=== PATIENT | male | born 1940 | race Hispanic/Latino ===

== ENCOUNTER 2021-02-10 05:56 | Emergency (ER) | payer MEDICARE ==
--- NOTE | 2021-02-10 06:07 | Emergency Department Report ---
ED General Adult HPI - General Chief complaint: Tube Replacement Stated complaint: DISLODGE FEEDING TUBE PUI?: No Time Seen by Provider: 02/10/21 06:03 Source: patient, family, EMS (Verbal report received from emergency medical services. EMS documentation not available at time of chart dictation ), RN notes reviewed, old records reviewed Mode of arrival: Stretcher Limitations: Other (Patient is demented and a poor historian) - History of Present Illness Initial comments: The patient was evaluated in the emergency department for symptoms described in the history of present illness. He/she was evaluated in the context of the global COVID-19 pandemic, which necessitated consideration that the patient might be at risk for infection with the virus that causes COVID-19. Institutional protocols and algorithms that pertain to the evaluation of patients at risk for COVID-19 are in a state of rapid change based on informati on released by regulatory bodies including the CDC and federal and state organizations. These policies and algorithms were followed during the patient's care in the emergency department. Please note that these policies, procedures and recommendations changed on a rapid basis. History obtained from patient's , Ms. Debo Posada; [id number] The patient is a 80-year-old gentleman, with a history of dysphasia, stroke, feeding tube in place since December of this year, who was sent to the emergency room by his family and , with a request for feeding tube evaluation. As per his , the patient has been in his usual state of health, and she felt that he pulled at the tube this morning, and was concerned that the tube is dislodged and out of place. She denies all other complaints. She feels like the patient is at his baseline. The patient himself is demented and a poor historian does not offer additional history. He indicates that he is "cold", when covers are taken off of him to perform a physical examination. He denies physical pain at this time. His denies physical pain. She also denies nausea, vomiting, diarrhea, urinary frequency, and change in mental status. Primary CARE doctor: Jaspreet Denis -: This morning Improves with: none Worsens with: none Associated Symptoms: denies other symptoms - Related Data Home Medications Medication Instructions Recorded Confirmed Last Taken Metoprolol [Lopressor TAB] 50 mg PO BID 06/05/14 02/20/20 Unknown allopurinoL [Zyloprim] 300 mg PO DAILY 06/05/14 02/20/20 Unknown Apixaban [Eliquis] 1 tab PO BID 02/20/20 02/20/20 Unknown Flecainide [Tambocor] 50 mg PO Q12H 02/20/20 02/20/20 Unknown Memantine 10 mg PO BID 02/20/20 02/20/20 Unknown Rivastigmine [Exelon Patch 1 patch TRANSDERMA DAILY 02/20/20 02/20/20 Unknown 4.6mg/24hr] Tamsulosin [Flomax] 0.4 mg PO DAILY 02/20/20 02/20/20 Unknown amLODIPine 5 mg PO DAILY 02/20/20 02/20/20 Unknown Allergies Allergy/AdvReac Type Severity Reaction Status Date / Time hydromorphone HCl Allergy Vomiting Verified 06/05/14 21:35 [From Dilaudid] morphine Allergy Unknown Verified 06/05/14 21:35 ED Review of Systems ROS: Stated complaint: DISLODGE FEEDING TUBE Other details as noted in HPI Comment: All other systems reviewed and negative (As per discussion with patient's ) ED Past Medical Hx - Past Medical History Hx Hypertension: Yes Hx CVA: Yes (left peripheral vision 2010) Hx GERD: Yes Hx COPD: Yes Hx Dementia: Yes Additional medical history: Gout. polycythemia vera. AFIB. Reflex sympathetic dystrophy. Pacemaker - Surgical History Hx Pacemaker: Yes Additional Surgical History: Left knee surgery 2006. cataracts 2009, 2010. Herniorrhaphy. Elbow surgery - Social History Smoking Status: Never Smoker Substance Use Type: None - Medications Home Medications: Home Medications Medication Instructions Recorded Confirmed Last Taken Type Metoprolol [Lopressor TAB] 50 mg PO BID 06/05/14 02/20/20 Unknown History allopurinoL [Zyloprim] 300 mg PO DAILY 06/05/14 02/20/20 Unknown History Apixaban [Eliquis] 1 tab PO BID 02/20/20 02/20/20 Unknown History Flecainide [Tambocor] 50 mg PO Q12H 02/20/20 02/20/20 Unknown History Memantine 10 mg PO BID 02/20/20 02/20/20 Unknown History Rivastigmine [Exelon Patch 1 patch TRANSDERMA DAILY 02/20/20 02/20/20 Unknown History 4.6mg/24hr] Tamsulosin [Flomax] 0.4 mg PO DAILY 02/20/20 02/20/20 Unknown History amLODIPine 5 mg PO DAILY 02/20/20 02/20/20 Unknown History ED Physical Exam - General Limitations: Language Barrier, Physical Limitation, Other (Dementia and poor historian) General appearance: alert, in no apparent distress - Head Head exam: Present: atraumatic, normocephalic - Eye Eye exam: Present: normal appearance - ENT ENT exam: Present: normal exam, normal orophraynx, mucous membranes moist, normal external ear exam, other (Hearing aid noted in the right ear) - Neck Neck exam: Present: normal inspection, full ROM. Absent: tenderness, meningismus - Respiratory Respiratory exam: Present: normal lung sounds bilaterally. Absent: respiratory distress, wheezes, rales, rhonchi, stridor, chest wall tenderness, accessory muscle use, decreased breath sounds, prolonged expiratory - Cardiovascular Cardiovascular Exam: Present: regular rate, normal rhythm, normal heart sounds. Absent: bradycardia, tachycardia, irregular rhythm, systolic murmur, diastolic murmur, rubs, gallop - GI/Abdominal GI/Abdominal exam: Present: soft, other (There is a feeding tube in place, with no redness, pus or streaking). Absent: distended, tenderness, guarding, rebound, rigid, pulsatile mass - Rectal Rectal exam: Present: deferred - Extremities Exam Extremities exam: Present: normal inspection, other (2+ pulses noted in the bilateral upper and lower extremities. There is no palpable cord. negative Homans sign. Muscular compartments are soft. The pelvis is stable.). Absent: tenderness - Back Exam Back exam: Present: normal inspection. Absent: tenderness, CVA tenderness (R), CVA tenderness (L), paraspinal tenderness, vertebral tenderness - Neurological Exam Neurological exam: Present: other (The patient is demented. The patient explains that he is cold when he is examined. The patient is noted to be moving his right arm in his bilateral lower extremities. There is no obvious facial droop. Detailed neurologic examination limited secondary to underlying dementia) - Skin Skin exam: Present: warm, dry, intact, normal color. Absent: rash ED Course Vital Signs 02/10/21 02/10/21 06:07 06:24 Temperature 97.4 F L Pulse Rate 71 Respiratory 16 16 Rate Blood Pressure 148/83 O2 Sat by Pulse 99 Oximetry - Reevaluation(s) Reevaluation #1: 02/10/21 07:41 X-ray confirms appropriate placement of feeding tube, patient resting comfortably in no acute distress, patient's is updated. ED Medical Decision Making - Lab Data Vital Signs 02/10/21 02/10/21 06:07 06:24 Temperature 97.4 F L Pulse Rate 71 Respiratory 16 16 Rate Blood Pressure 148/83 O2 Sat by Pulse 99 Oximetry - Radiology Data Radiology results: pending, report reviewed, image reviewed interpreted by me: G-tube x-ray shows appropriate placement of feeding tube, with appropriate contrast and the GI lumen. [facility] [address] [place] [address] XRay Report Signed Patient: NASIR POSADA MR#: [id number] : 1940 Acct:[id number] Age/Sex: 80 / M ADM Date: 02/10/21 Loc: ED Attending Dr: Ordering Physician: RANCHO CARRASCO MD Date of Service: 02/10/21 Procedure(s): XR g-tube study Accession Number(s): [id number] cc: RANCHO CARRASCO MD Fluoro Time In Minutes: G-TUBE STUDY HISTORY: Assess tube placement. Question PEG tube dislodgment. COMPARISON: No relevant comparison. FINDINGS: Forest[employer] Chief film of the abdomen is presented demonstrating a PEG tube overlying the left upper quadrant. The bowel gas pattern is normal. A second image was obtained following injec tion of 30 cc of Gastrografin into the PEG tube. Contrast agent outlines the stomach, duodenum and proximal jejunum. There is no evidence for extravasation or obstruction. IMPRESSION: The peg tube terminates in the stomach. No abnormality is appreciated on G-tube study. Signer Name: Nishant Nagel Jr, MD Signed: 02/10/2021 7:33 AM Workstation Name: [id number] Transcribed By: TTR Dictated By: NISHANT NAGEL JR, MD Electronically Authenticated By: NISHANT NAGEL JR, MD Signed Date/Time: 02/10/21732 DD/ 0 - Medical Decision Making Differential diagnosis, including but not limited to: Encounter for feeding tube evaluation Assessment and plan: 80-year-old gentleman, who is afebrile, with reassuring vital signs, sent here by family because of concern that a feeding tube may be out of place. Nursing team able to flush the feeding tube easily. X-ray with contrast demonstrates appropriate placement of feeding tube. Patient resting comfortably on stretcher at this time, and in no acute distress. Nursing team to tack down feeding tube. Contacted and discussed findings with her. She has articulated understanding. Feeding tube may be used for feeds at this time, and as well as medication administration. The patient does not appear to have an emergent medical condition present at this time. to follow-up with primary care and/or GI for outpatient maintenance. Return precautions are reviewed. Critical care attestation.: If time is entered above; I have spent that time in minutes in the direct care of this critically ill patient, excluding procedure time. ED Disposition Clinical Impression: Encounter for care related to feeding tube Disposition: DC-01 TO HOME OR SELFCARE Is pt being admited?: No Does the pt Need Aspirin: No Condition: Good Additional Instructions: Please continue current outpatient medications. Please follow-up with your outpatient primary care doctor or facilities specialist within the next month for outpatient feeding tube related care. Patient had an x-ray today which demonstrated appropriate placement of feeding tube, and thus feeding tube may be used for feeds, as well as for medication utilization. Please return to the emergency room right away with new pain, worsened pain, migration of pain, projectile vomiting, change in mental status, confusion, inability to tolerate liquid feeds, new, worsened or different symptoms not present on the initial emergency room evaluation. Referrals: [facility] [Provider Group] - 3-[address] [facility] [Provider Group] - 3-5 Days
--- NOTE | 2021-02-10 07:38 | XRay Report ---
G-TUBE STUDY HISTORY: Assess tube placement. Question PEG tube dislodgment. COMPARISON: No relevant comparison. FINDINGS: Sh[place] Headman film of the abdomen is presented demonstrating a PEG tube overlying the left upper qu adrant. The bowel gas pattern is normal. A second image was obtained following injection of 30 cc of Gastrografin into the PEG tube. Contrast agent outlines the stomach, duodenum and proximal jejunum. T here is no evidence for extravasation or obstruction. IMPRESSION: The peg tube terminates in the stomach. No abnormality is appreciated on G-tube study. Signer Name: Nishant Nagel Jr, MD Signed: 02/10/2021 7:33 AM Workstation Name: [id number]
[2021-02-10 11:52] VITALS: BP 145/71
== END 2021-02-10 11:52 | disposition home or self-care (01) ==
LOC: ED 05:56
DX: F03.90 Unspecified dementia, unspecified severity, without behavioral disturbance, psychotic disturbance, mood disturbance, and anxiety (principal); Z43.1 Encounter for attention to gastrostomy; K21.9 Gastro-esophageal reflux disease without esophagitis; J44.9 Chronic obstructive pulmonary disease, unspecified; Z98.890 Other specified postprocedural states; Z79.899 Other long term (current) drug therapy; Z88.8 Allergy status to other drugs, medicaments and biological substances
CPT/HCPCS: 74018; 99284; Q9963

== ENCOUNTER 2021-03-02 12:21 | Inpatient (IN) | payer MEDICARE ==
[2021-03-02] MEDS ORDERED: SODIUM CHLORIDE 0.9% 1000 ML 1,000 ML IV ONE ×2 (13:48→16:18)
--- NOTE | 2021-03-02 13:55 | Emergency Department Report ---
ED General Adult HPI - General Stated complaint: DEHYDRATION Time Seen by Provider: 03/02/21 13:47 Source: EMS - History of Present Illness Initial comments: Patient is 80 years old male with history of dementia, CVA, hypertension and COPD. Patient brought to the emergency room via EMS from home for evaluation of altered mental status and dehydration. EMS stated that patient is bedridden and he does have a home health nurse that comes in examination. Family stated that patient refused to eat. Patient does have a PEG tube. Upon arrival to the ER patient is alert and stated that he is in the hospital but he does not know the time. Patient stated that he is hurting all over. -: days(s) - Related Data Home Medications Medication Instructions Recorded Confirmed Last Taken Metoprolol [Lopressor TAB] 50 mg PO BID 06/05/14 02/20/20 Unknown allopurinoL [Zyloprim] 300 mg PO DAILY 06/05/14 02/20/20 Unknown Apixaban [Eliquis] 1 tab PO BID 02/20/20 02/20/20 Unknown Flecainide [Tambocor] 50 mg PO Q12H 02/20/20 02/20/20 Unknown Memantine 10 mg PO BID 02/20/20 02/20/20 Unknown Rivastigmine [Exelon Patch 1 patch TRANSDERMA DAILY 02/20/20 02/20/20 Unknown 4.6mg/24hr] Tamsulosin [Flomax] 0.4 mg PO DAILY 02/20/20 02/20/20 Unknown amLODIPine 5 mg PO DAILY 02/20/20 02/20/20 Unknown Allergies Allergy/AdvReac Type Severity Reaction Status Date / Time hydromorphone HCl Allergy Vomiting Verified 06/05/14 21:35 [From Dilaudid] morphine Allergy Unknown Verified 06/05/14 21:35 ED Review of Systems ROS: Stated complaint: DEHYDRATION Other details as noted in HPI Comment: All other systems reviewed and negative Constitutional: denies: chills, fever Musculoskeletal: arthralgia, myalgia Neurological: weakness ED Past Medical Hx - Past Medical History Hx Hypertension: Yes Hx CVA: Yes (left peripheral vision 2010) Hx GERD: Yes Hx COPD: Yes Hx Dementia: Yes Additional medical history: Gout. polycythemia vera. AFIB. Reflex sympathetic dystrophy. Pacemaker - Surgical History Hx Pacemaker: Yes Additional Surgical History: Left knee surgery 2006. cataracts 2009, 2010. Herniorrhaphy. Elbow surgery - Social History Smoking Status: Never Smoker Substance Use Type: None - Medications Home Medications: Home Medications Medication Instructions Recorded Confirmed Last Taken Type Metoprolol [Lopressor TAB] 50 mg PO BID 06/05/14 02/20/20 Unknown History allopurinoL [Zyloprim] 300 mg PO DAILY 06/05/14 02/20/20 Unknown History Apixaban [Eliquis] 1 tab PO BID 02/20/20 02/20/20 Unknown History Flecainide [Tambocor] 50 mg PO Q12H 02/20/20 02/20/20 Unknown History Memantine 10 mg PO BID 02/20/20 02/20/20 Unknown History Rivastigmine [Exelon Patch 1 patch TRANSDERMA DAILY 02/20/20 02/20/20 Unknown History 4.6mg/24hr] Tamsulosin [Flomax] 0.4 mg PO DAILY 02/20/20 02/20/20 Unknown History amLODIPine 5 mg PO DAILY 02/20/20 02/20/20 Unknown History ED Physical Exam - General General appearance: alert, in no apparent distress - Head Head exam: Present: atraumatic, normocephalic, normal inspection - ENT ENT exam: Present: mucous membranes dry - Neck Neck exam: Present: normal inspection, full ROM. Absent: tenderness, meningismus - Respiratory Respiratory exam: Present: normal lung sounds bilaterally - Cardiovascular Cardiovascular Exam: Present: regular rate, normal rhythm, normal heart sounds - GI/Abdominal GI/Abdominal exam: Present: soft, normal bowel sounds, other (PEG tube in place.). Absent: distended, tenderness, guarding, rebound, rigid, mass, bruit, pulsatile mass, hernia - Back Exam Back exam: Present: normal inspection - Neurological Exam Neurological exam: Present: alert, CN II-XII intact - Skin Skin exam: Present: warm, dry, intact ED Course Vital Signs 03/02/21 03/02/21 03/02/21 14:18 14:31 15:01 Temperature Pulse Rate 60 60 60 Respiratory 12 16 13 Rate Blood Pressure 139/70 142/74 O2 Sat by Pulse 98 96 96 Oximetry 03/02/21 03/02/21 15:31 15:53 Temperature 97.8 F Pulse Rate 60 Respiratory 20 Rate Blood Pressure 135/67 O2 Sat by Pulse Oximetry ED Medical Decision Making - Lab Data Result diagrams: 03/02/21 13:54 03/02/21 13:54 - Radiology Data Radiology results: report reviewed - Medical Decision Making Patient is 80 years old male with history of dementia, CVA, hypertension and COPD. Patient brought to the emergency room via EMS from home for evaluation of altered mental status and dehydration. EMS stated that patient is bedridden and he does have a home health nurse that comes in examination. Family stated that patient refused to eat. Patient does have a PEG tube. Upon arrival to the ER patient is alert and stated that he is in the hospital but he does not know the time. Patient stated that he is hurting all over. Labs reviewed and is unremarkable. Chest x-ray showed bilateral lower lobe pneumonia. Patient started on Levaquin 500 mg IV. I discussed the patient with Dr. Gregorio, he agreed to admit the patient to medical service for further jaspreet mcgregor. Critical care attestation.: If time is entered above; I have spent that time in minutes in the direct care of this critically ill patient, excluding procedure time. ED Disposition Clinical Impression: Altered mental status, Bilateral pneumonia Disposition: DC-09 OP ADMIT IP TO THIS HOSP Is pt being admited?: Yes Condition: Stable Instructions: Bacterial Pneumonia (ED)
--- NOTE | 2021-03-02 14:15 | XRay Report ---
XR chest 1V ap INDICATION / CLINICAL INFORMATION: Altered Mental Status COMPARISON: 02/19/2020 FINDINGS: SUPPORT DEVICES: Left transvenous pacemaker. HEART / MEDIASTINUM: No significant abnormality. LUNGS / PLEURA: Left basilar opacities. Costophrenic sulci are sharp. No pneumothorax. ADDITIONAL FINDINGS: No significant additional findings. IMPRESSION: 1. Bibasilar peripheral opacities could be airspace disease such as pneumonia or atelectasis. Signer Name: Shravan Caba MD Signed: 03/02/2021 2:10 PM Workstation Name: [id number]
[2021-03-02 14:26] LABS: Basophils # (Auto) 0.1 K/mm3 (0.0-0.1); Basophils % (Auto) 0.9 % (0.0-1.8); Eosinophils # (Auto) 0.1 K/mm3 (0.0-0.4); Eosinophils % (Auto) 1.4 % (0.0-4.3); Hematocrit 51.9 % (35.5-45.6); Hemoglobin 17.5 gm/dl (11.8-15.2); Lymphocytes # (Auto) 0.7 K/mm3 (1.2-5.4); Lymphocytes % (Auto) 10.9 % (13.4-35.0); Mean Corpuscular HGB Conc 34 % (32-34); Mean Corpuscular Volume 98 fl (84-94); Monocytes # (Auto) 0.5 K/mm3 (0.0-0.8); Monocytes % (Auto) 7.2 % (0.0-7.3); Platelet Count 143 K/mm3 (140-440); Red Cell Distribution Width 15.2 % (13.2-15.2)
[2021-03-02 14:35] LABS: INR 1.09 (0.87-1.13)
[2021-03-02 14:36] LABS: Partial Thromboplastin Time 28.1 Sec. (24.2-36.6)
[2021-03-02 14:44] LABS: Blood Urea Nitrogen 20 mg/dL (9-20); Calcium 8.7 mg/dL (8.4-10.2); Hemolysis Index 7
--- NOTE | 2021-03-02 14:46 | Cat Scan Report ---
CT head/brain wo con INDICATION: Altered Mental Status. TECHNIQUE: All CT scans at this location are performed using CT dose reduction for ALARA by means of automated e xposure control. COMPARISON: Head CT on 02/22/2020 FINDINGS: There is no evidence of hemorrhage, hydrocephalus, brain edema, or mass effect/mass lesion. Stable ch ronic infarct in the right occipital lobe. Stable mild ventricular megaly that appears to be due to c entral volume loss. Interval development of chronic lacunar infarct in the right gangliocapsular elbert on. Stable chronic infarct in the right lateral cerebellum. The included paranasal sinuses and mastoid air cells are clear. The orbits appear unremarkable. IMPRESSION: 1. No acute intracranial abnormality identified. Signer Name: Sohan Rader MD Signed: 03/02/2021 2:41 PM Workstation Name: [id number]
[2021-03-02 14:50] LABS: Alanine Aminotransferase 17 units/L (7-56); Albumin 3.6 g/dL (3.9-5)
[2021-03-02 15:10] LABS: BUN/Creatinine Ratio 33; Bilirubin,Direct < 0.2 mg/dL (0-0.2)
--- NOTE | 2021-03-02 16:08 | History and Physical Report ---
History of Present Illness Chief complaint: He is just going downhill History of present illness: 80 YO Male with Vascular Dementia with Behavioral Disturbance, Cerebral Atherosclerosis, CVA complicated by Dysphagia with PEG tube in place, HTN, COPD, Gout, Debility, GERD, Atrial Fib on therapeutic anticoagulation with Eliquis, Polycythemia Vera, Reflex Symptthetic Dystrophy, Cardiomyopathy S/P Pacemaker placement presents to ED for evaluation. Patient has diminished cognition and is unable to provide history. Patient history is provided by his who was at bedside during exam and interview. Patient reports "he is getting worse every day". Patient states that the patient has experienced increased weakness, increased confusion, as well as diminished intake over the past 1 month with persistently worsening symptoms at same timeframe. Patient is bedbound, nonambulatory and requires 6/6 assistance with activities of daily living. Patient has a palliative performance score 30% and is unable to maintain a seated position in bed. EMS was notified due to the aforementioned symptoms and upon arrival the patient was found to be in distress and subsequently transported to [facility] for further care and evaluation of the aforementioned symptoms. The patient was seen and evaluated in the emergency department. All lab and imaging studies reviewed. Patient underwent chest x- ray which revealed bilateral pneumonia. The patient was initiated on pneumonia protocol and admitted to medical floor due to increased risk of worsening symptoms. No reports of fever, chills, chest pain, palpitations, productive cough, skin rash, recent ill contacts, or known exposure to COVID-19. Prior admission on 02/20/2020 reviewed. All medication listed at time of admission has been reconciled. Advanced care planning conducted in ED. Past History Past Medical History: atrial fib, COPD, hypertension, stroke, other (See HPI) Past Surgical History: Other (PEG tube placement) Social history: , lives with family. denies: smoking, alcohol abuse Family history: CAD, hypertension Medications and Allergies Allergies Allergy/AdvReac Type Severity Reaction Status Date / Time hydromorphone HCl Allergy Vomiting Verified 06/05/14 21:35 [From Dilaudid] morphine Allergy Unknown Verified 06/05/14 21:35 Home Medications Medication Instructions Recorded Confirmed Last Taken Type Metoprolol [Lopressor TAB] 50 mg PO BID 06/05/14 02/20/20 Unknown History allopurinoL [Zyloprim] 300 mg PO DAILY 06/05/14 02/20/20 Unknown History Apixaban [Eliquis] 1 tab PO BID 02/20/20 02/20/20 Unknown History Flecainide [Tambocor] 50 mg PO Q12H 02/20/20 02/20/20 Unknown History Memantine 10 mg PO BID 02/20/20 02/20/20 Unknown History Rivastigmine [Exelon Patch 1 patch TRANSDERMA DAILY 02/20/20 02/20/20 Unknown History 4.6mg/24hr] Tamsulosin [Flomax] 0.4 mg PO DAILY 02/20/20 02/20/20 Unknown History amLODIPine 5 mg PO DAILY 02/20/20 02/20/20 Unknown History Review of Systems ROS unobtainable: due to mental status Exam - Constitutional Vitals: Temp Pulse Resp BP Pulse Ox 97.8 F 60 20 135/67 96 03/02/21 15:53 03/02/21 15:31 03/02/21 15:31 03/02/21 15:31 03/02/21 15:01 General appearance: Present: mild distress - EENT Eyes: Present: PERRL ENT: clear oral mucosa, hearing decreased - Neck Neck: Present: supple, normal ROM - Respiratory Respiratory effort: normal Respiratory: bilateral: diminished - Cardiovascular Rhythm: irregularly irregular Heart Sounds: Present: S1 & S2. Absent: rub, click - Extremities Extremities: pulses symmetrical, No edema Peripheral Pulses: within normal limits - Abdominal General gastrointestinal: Present: soft, non-tender, non-distended, normal bowel sounds Male genitourinary: Present: normal - Integumentary Integumentary: Present: clear, warm, dry - Musculoskeletal Musculoskeletal: left sided weakness - Psychiatric Psychiatric: no appropriate mood/affect, no intact judgment & insight, no memory intact - Neurologic Neurologic: CNII-XII intact, focal deficits, no moves all extremities, no gait normal HEART Score - HEART Score Troponin: Troponin T < 0.010 ng/mL (0.00-0.029) 03/02/21 13:54 Results - Labs CBC & Chem 7: 03/02/21 13:54 03/02/21 13:54 Labs: Abnormal lab results 03/02/21 03/02/21 03/02/21 Range/Units 13:54 13:54 13:54 RBC 5.30 H (3.65-5.03) M/mm3 Hgb 17.5 H (11.8-15.2) gm/dl Hct 51.9 H (35.5-45.6) % MCV 98 H (84-94) fl MCH 33 H (28-32) pg Lymph % (Auto) 10.9 L (13.4-35.0) % Lymph # (Auto) 0.7 L (1.2-5.4) K/mm3 Seg Neutrophils % 79.6 H (40.0-70.0) % Sodium 135 L (137-145) mmol/L Carbon Dioxide 32 H (22-30) mmol/L Creatinine 0.6 L (0.8-1.3) mg/dL Alkaline Phosphatase 162 H (35-129) units/L Ammonia (25-60) umol/L Total Creatine Kinase 19 L (55-170) units/L Total Protein 5.8 L (6.3-8.2) g/dL Albumin 3.6 L (3.9-5) g/dL 03/02/21 Range/Units 13:54 RBC (3.65-5.03) M/mm3 Hgb (11.8-15.2) gm/dl Hct (35.5-45.6) % MCV (84-94) fl MCH (28-32) pg Lymph % (Auto) (13.4-35.0) % Lymph # (Auto) (1.2-5.4) K/mm3 Seg Neutrophils % (40.0-70.0) % Sodium (137-145) mmol/L Carbon Dioxide (22-30) mmol/L Creatinine (0.8-1.3) mg/dL Alkaline Phosphatase (35-129) units/L Ammonia 19.0 L (25-60) umol/L Total Creatine Kinase (55-170) units/L Total Protein (6.3-8.2) g/dL Albumin (3.9-5) g/dL Assessment and Plan - Patient Problems (1) Bilateral pneumonia Current Visit: Yes Status: Acute Plan to address problem: Pneumonia protocol: Chest x-ray, CBC, CMP, IV antibiotic therapy, supplemental oxygen, pulse oximetry, blood culture. (2) Vascular dementia with behavioral disturbance Current Visit: Yes Status: Acute Plan to address problem: Verbal prompting, verbal redirection, benzodiazepine therapy as clinically indicated. (3) Cerebral atherosclerosis Current Visit: Yes Status: Acute Plan to address problem: Risk factor reduction, antiplatelet therapy, supportive care. (4) Debility Current Visit: Yes Status: Acute Plan to address problem: Supportive care, fall precautions, supportive care. (5) Atrial fibrillation Current Visit: Yes Status: Acute (6) Hypertension Current Visit: Yes Status: Acute Qualifiers: Hypertension type: essential hypertension Qualified Code(s): I10 - Essential (primary) hypertension Plan to address problem: Monitor blood pressure every shift, continue medical management (7) GERD (gastroesophageal reflux disease) Current Visit: Yes Status: Acute Qualifiers: Esophagitis presence: without esophagitis Qualified Code(s): K21.9 - Gastro-esophageal reflux disease without esophagitis Plan to address problem: PPI therapy, supportive care. (8) DVT prophylaxis Current Visit: No Status: Acute Plan to address problem: SCD to bilateral lower extremities while in bed, continue therapeutic anticoagulation (9) Advance care planning Current Visit: Yes Status: Acute Plan to address problem: Disease education conducted, care plan discussed, diagnoses discussed, prognosis discussed, patient is full code. Patient knowledges understanding and agreement with care plan. Patient reports desire for dual evaluation. Patient lives request attempted placement in halfway facility with concomitant hospice consultation. Patient information sent for home hospice evaluation. Case management consulted for possible halfway facility placement. +30 minutes.
[2021-03-02] MEDS ORDERED: ACETAMINOPHEN 325 MG TAB PO PRN (17:00)
[2021-03-02] MEDS ORDERED: ONDANSETRON 4 MG/2 ML INJ IV PRN (17:00)
[2021-03-02] MEDS ORDERED: ALBUTEROL 2.5 MG/3 ML NEBU IH PRN (17:00)
[2021-03-02] MEDS: cefTRIAXone/NS 2 GM/100 ML 2 GM/100 ML BAG IV SCH (19:17)
[2021-03-02] MEDS: AZITHROMYCIN/NS 500 MG/250 ML 500 MG/250 ML BAG IV SCH (20:00)
[2021-03-02] MEDS ORDERED: NON-FORMULARY EACH (Apixaban 2.5 MG Tablet) PO SCH (22:00)
[2021-03-02] MEDS ORDERED: LORazepam 2 MG/ML VIAL IV ONE (22:10)
[2021-03-03] MEDS: METOPROLOL TARTRATE 50 MG TAB PO SCH ×3 (00:02→21:39)
[2021-03-03] MEDS: APIXABAN 2.5 MG TAB PO SCH ×3 (00:02→21:36)
[2021-03-03] MEDS: FLECAINIDE 100 MG TAB PO SCH ×3 (00:03→21:39)
[2021-03-03] MEDS: MEMANTINE 10 MG TAB PO SCH ×3 (00:11→21:40)
[2021-03-03 03:55] LABS: Mucus,Urine FEW /HPF; WBC,Urine < 1.0 /HPF (0.0-6.0)
[2021-03-03 04:04] LABS: Color,Urine Yellow (Yellow); Ictotest,Urine Negative (Negative); Urobilinogen,Urine < 2.0 mg/dL (<2.0)
[2021-03-03] MEDS ORDERED: LORazepam 2 MG/ML VIAL IV ONE ×2 (05:42→21:12)
--- NOTE | 2021-03-03 09:27 | Progress Note ---
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 Patient has diminished cognition and is unable to provide history. Patient history is provided by his who was at bedside during exam and interview. Patient reports "he is getting worse every day". Patient states that the patient has experienced increased weakness, increased confusion, as well as diminished intake over the past 1 month with persistently worsening symptoms at same timeframe. Patient is bedbound, nonambulatory and requires 6/6 assistance with activities of daily living. Patient has a palliative performance score 30% and is unable to maintain a seated position in bed. EMS was notified due to the aforementioned symptoms and upon arrival the patient was found to be in distress and subsequently transported to [facility] for further care and evaluation of the aforementioned symptoms. The patient was seen and evaluated in the emergency department. All lab and imaging studies reviewed. Patient underwent chest x- ray which revealed bilateral pneumonia. The patient was initiated on pneumonia protocol and admitted to medical floor due to increased risk of worsening symptoms. No reports of fever, chills, chest pain, palpitations, productive cough, skin rash, recent ill contacts, or known exposure to COVID-19. Prior admission on 02/20/2020 reviewed. All medication listed at time of admission has been reconciled. Advanced care planning conducted in ED. 03/03: Patient admitted and be managed for adult failure to thrive noted to have pneumonia also being treated for possible incidental finding. Of call the but was unable to get her and I left a message. My understanding from the above note indicates that the family is agreeable to hospice consult placement. Patient was still with altered sensorium required restraints for safety. We will continue current management. We will also check a COVID-19 virus infection this will also assist with placement. Case discussed with case management today. (1) Bilateral pneumonia Current Visit: Yes Status: Acute Plan to address problem: Pneumonia protocol: Chest x-ray, CBC, CMP, IV antibiotic therapy, supplemental oxygen, pulse oximetry, blood culture. (2) Vascular dementia with behavioral disturbance Current Visit: Yes Status: Acute Plan to address problem: Verbal prompting, verbal redirection, benzodiazepine therapy as clinically indicated. (3) Cerebral atherosclerosis Current Visit: Yes Status: Acute Plan to address problem: Risk factor reduction, antiplatelet therapy, supportive care. (4) Debility Current Visit: Yes Status: Acute Plan to address problem: Supportive care, fall precautions, supportive care. (5) Atrial fibrillation Current Visit: Yes Status: Acute (6) Hypertension Current Visit: Yes Status: Acute Qualifiers: Hypertension type: essential hypertension Qualified Code(s): I10 - Essential (primary) hypertension Plan to address problem: Monitor blood pressure every shift, continue medical management (7) GERD (gastroesophageal reflux disease) Current Visit: Yes Status: Acute Qualifiers: Esophagitis presence: without esophagitis Qualified Code(s): K21.9 - Gastro-esophageal reflux disease without esophagitis Plan to address problem: PPI therapy, supportive care. (8) DVT prophylaxis Current Visit: No Status: Acute Plan to address problem: SCD to bilateral lower extremities while in bed, continue therapeutic anticoagulation (9) Advance care planning Current Visit: Yes Status: Acute Plan to address problem: Disease education conducted, care plan discussed, diagnoses discussed, prognosis discussed, patient is full code. Patient knowledges understanding and agreement with care plan. Patient reports desire for dual evaluation. Patient lives request attempted placement in [facility] with concomitant hospice consultation. Patient information sent for home hospice evaluation. Case management consulted for possible [facility] facility [facility]. +30 minutes. History Interval history: Patient seen and examined this morning lethargic my understanding is that he received some Ativan earlier this morning because of agitation. Hospitalist Physical - Physical exam Narrative exam: General appearance: Present: Drowsy otherwise no acute distress noted appears normally developed - EENT Eyes: Present: PERRL ENT: clear oral mucosa, hearing decreased - Neck Neck: Present: supple, normal ROM - Respiratory Respiratory effort: normal Respiratory: bilateral: diminished - Cardiovascular Rhythm: irregularly irregular Heart Sounds: Present: S1 & S2. Absent: rub, click - Extremities Extremities: pulses symmetrical, No edema Peripheral Pulses: within normal limits - Abdominal General gastrointestinal: Present: soft, non-tender, non-distended, normal bowel sounds Male genitourinary: Present: normal - Integumentary Integumentary: Present: clear, warm, dry - Musculoskeletal Musculoskeletal: left sided weakness - Psychiatric Psychiatric: Unable to examine - Neurologic Neurologic: CNII-XII intact, focal deficits, no moves all extremities, no gait normal - Constitutional Vitals: Temp Pulse Resp BP Pulse Ox 98.5 F 82 20 159/78 91 03/02/21 22:20 03/03/21 00:02 03/02/21 22:20 03/03/21 00:02 03/03/21 08:13 General appearance: Present: mild distress HEART Score - HEART Score Troponin: Troponin T < 0.010 ng/mL (0.00-0.029) 03/02/21 13:54 Results - Labs CBC & Chem 7: 03/02/21 13:54 03/02/21 13:54 Labs: Laboratory Last Values WBC 6.9 K/mm3 (4.5-11.0) 03/02/21 13:54 RBC 5.30 M/mm3 (3.65-5.03) H 03/02/21 13:54 Hgb 17.5 gm/dl (11.8-15.2) H 03/02/21 13:54 Hct 51.9 % (35.5-45.6) H 03/02/21 13:54 MCV 98 fl (84-94) H 03/02/21 13:54 MCH 33 pg (28-32) H 03/02/21 13:54 MCHC 34 % (32-34) 03/02/21 13:54 RDW 15.2 % (13.2-15.2) 03/02/21 13:54 Plt Count 143 K/mm3 (140-440) 03/02/21 13:54 Lymph % (Auto) 10.9 % (13.4-35.0) L 03/02/21 13:54 [place] % (Auto) 7.2 % (0.0-7.3) 03/02/21 13:54 Eos % (Auto) 1.4 % (0.0-4.3) 03/02/21 13:54 Baso % (Auto) 0.9 % (0.0-1.8) 03/02/21 13:54 Lymph # (Auto) 0.7 K/mm3 (1.2-5.4) L 03/02/21 13:54 [place] # (Auto) 0.5 K/mm3 (0.0-0.8) 03/02/21 13:54 Eos # (Auto) 0.1 K/mm3 (0.0-0.4) 03/02/21 13:54 Baso # (Auto) 0.1 K/mm3 (0.0-0.1) 03/02/21 13:54 Seg Neutrophils % 79.6 % (40.0-70.0) H 03/02/21 13:54 Seg Neutrophils # 5.5 K/mm3 (1.8-7.7) 03/02/21 13:54 PT 14.6 Sec. (12.2-14.9) 03/02/21 13:54 INR 1.09 (0.87-1.13) 03/02/21 13:54 APTT 28.1 Sec. (24.2-36.6) 03/02/21 13:54 Sodium 135 mmol/L (137-145) L 03/02/21 13:54 Potassium 4.3 mmol/L (3.6-5.0) 03/02/21 13:54 Chloride 98.9 mmol/L (98-107) 03/02/21 13:54 Carbon Dioxide 32 mmol/L (22-30) H 03/02/21 13:54 Anion Gap 8 mmol/L 03/02/21 13:54 BUN 20 mg/dL (9-20) 03/02/21 13:54 Creatinine 0.6 mg/dL (0.8-1.3) L 03/02/21 13:54 Estimated GFR > 60 ml/min 03/02/21 13:54 BUN/Creatinine Ratio 33 % 03/02/21 13:54 Glucose 92 mg/dL (75-100) 03/02/21 13:54 Lactic Acid 1.20 mmol/L (0.7-2.0) 03/02/21 13:54 Calcium 8.7 mg/dL (8.4-10.2) 03/02/21 13:54 Total Bilirubin 0.70 mg/dL (0.1-1.2) 03/02/21 13:54 Direct Bilirubin < 0.2 mg/dL (0-0.2) 03/02/21 13:54 Indirect Bilirubin 0.5 mg/dL 03/02/21 13:54 AST 19 units/L (5-40) 03/02/21 13:54 ALT 17 units/L (7-56) 03/02/21 13:54 Alkaline Phosphatase 162 units/L (35-129) H 03/02/21 13:54 Ammonia 19.0 umol/L (25-60) L 03/02/21 13:54 Total Creatine Kinase 19 units/L (55-170) L 03/02/21 13:54 Troponin T < 0.010 ng/mL (0.00-0.029) 03/02/21 13:54 Total Protein 5.8 g/dL (6.3-8.2) L 03/02/21 13:54 Albumin 3.6 g/dL (3.9-5) L 03/02/21 13:54 Albumin/Globulin Ratio 1.6 % 03/02/21 13:54 TSH 1.880 mlU/mL (0.270-4.200) 03/02/21 13:54 Urine Color Yellow (Yellow) 03/03/21 03:29 Urine Turbidity Clear (Clear) 03/03/21 03:29 Urine pH 6.0 (5.0-7.0) 03/03/21 03:29 Urine Protein 30 mg/dl mg/dL (Negative) 03/03/21 03:29 Urine Glucose (UA) Negative mg/dL (Negative) 03/03/21 03:29 Urine Ketones Negative mg/dL (Negative) 03/03/21 03:29 Urine Nitrite Negative (Negative) 03/03/21 03:29 Ur Reducing Substances Not Reportable 03/03/21 03:29 Urine Ictotest Negative (Negative) 03/03/21 03:29 Urine Urobilinogen < 2.0 mg/dL (<2.0) 03/03/21 03:29 Ur Leukocyte Esterase Negative (Negative) 03/03/21 03:29 Urine WBC (Auto) < 1.0 /HPF (0.0-6.0) 03/03/21 03:29 Urine RBC (Auto) 1.0 /HPF (0.0-6.0) 03/03/21 03:29 Urine Mucus Few /HPF 03/03/21 03:29 Microbiology: Microbiology 03/02/21 13:54 Peripheral/Venous Blood Culture - Preliminary Culture in Progress 03/02/21 13:54 Peripheral/Venous Blood Culture - Preliminary Culture in Progress Bruce/IV: Voiding Method Condom Catheter Active Medications - Current Medications Current Medications: Generic Name Dose Route Start Last Admin Trade Name Freq PRN Reason Stop Dose Admin Acetaminophen 650 mg 03/02/21 17:00 Acetaminophen 325 Mg Tab PO Q4H PRN Pain MILD(1-3)/Fever >100.5/SPRINGER Albuterol 2.5 mg 03/02/21 17:00 Albuterol 2.5 Mg/3 Ml Nebu IH Q4HRT PRN Shortness Of Breath Allopurinol 300 mg 03/03/21 10:00 Allopurinol 300 Mg Tab PO DAILY JEMMA Amlodipine Besylate 5 mg 03/03/21 10:00 Amlodipine 5 Mg Tab PO DAILY JEMMA Apixaban 2.5 mg 03/02/21 22:00 03/03/21 00:02 Apixaban 2.5 Mg Tab PO 2.5 mg BID JEMMA Administration Flecainide Acetate 50 mg 03/02/21 22:00 03/03/21 00:03 Flecainide 100 Mg Tab PO 50 mg Q12HR JEMMA Administration Ceftriaxone Sodium 2 gm in 100 mls @ 200 mls/hr 03/02/21 18:00 03/02/21 19:17 Rocephin/Ns 2 Gm/100 Ml IV 200 mls/hr Q24H JEMMA Administration Protocol Azithromycin 500 mg in 250 mls @ 250 mls/hr 03/02/21 18:00 03/02/21 20:00 Zithromax/Ns IV 250 mls/hr Q24H JEMMA Administration Protocol Memantine 10 mg 03/02/21 22:00 03/03/21 00:11 Memantine 10 Mg Tab PO 10 mg BID JEMMA Administration Metoprolol Tartrate 50 mg 03/02/21 22:00 03/03/21 00:02 Metoprolol Tartrate 50 Mg Tab PO 50 mg BID JEMMA Administration Ondansetron HCl 4 mg 03/02/21 17:00 Ondansetron 4 Mg/2 Ml Inj IV Q8H PRN Nausea And Vomiting Rivastigmine 4.6 mg 03/03/21 10:00 Rivastigmine 4.6 Mg/24 Hr Patch TD DAILY JEMMA Sodium Chloride 10 ml 03/02/21 22:00 03/03/21 00:11 Sodium Chloride 0.9% 10 Ml Flush Syringe IV 10 ml BID JEMMA Administration Sodium Chloride 10 ml 03/02/21 17:00 Sodium Chloride 0.9% 10 Ml Flush Syringe IV PRN PRN LINE FLUSH Tamsulosin HCl 0.4 mg 03/03/21 10:00 Tamsulosin 0.4 Mg Cap PO DAILY JEMMA
[2021-03-03] MEDS: amLODIPine 5 MG TAB PO SCH (10:36)
[2021-03-03] MEDS: allopurinoL 300 MG TAB PO SCH (10:36)
[2021-03-03] MEDS: TAMSULOSIN 0.4 MG CAP PO SCH (10:36)
[2021-03-03] MEDS: RIVASTIGMINE 4.6 MG/24 HR PATCH TD SCH (11:45)
[2021-03-03] MEDS ORDERED: SODIUM BICARBONATE 325 MG TAB FEEDTUBE PRN (12:29)
[2021-03-03] MEDS ORDERED: SIMPLE SYRUP 15 ML FEEDTUBE PRN ×2 (13:00)
[2021-03-03] MEDS ORDERED: LIPASE 10,500/PROTEASE 25,000/AMYLASE 43,750 (UNITS) DR CAP FEEDTUBE PRN (13:00)
--- NOTE | 2021-03-03 14:27 | Electrocardiograph Report ---
[facility] Test Date: 2021-03-03 Test Time: 08:28:11 Pat Name: NASIR POSADA Department: Room: A369 1 Gender: M Hourly Manager: KRYSTEN : 1940 Requested By: AMADEO KIM Order Number: [id number] Reading MD: Natty Hernandez Measurements Intervals [place] Rate: 60 P: MA: 154 QRS: -34 QRSD: 95 T: 37 QT: 461 QTc: 461 Interpretive Statements Atrial-paced rhythm Left axis deviation No previous ECG available for comparison Electronically Signed On 03-03-2021 14:27:26 EDT by Natty Hernandez
[2021-03-03] MEDS ORDERED: HALOPERIDOL LACTATE 5 MG/1 ML INJ IM NR (17:27)
[2021-03-03] MEDS: AZITHROMYCIN/NS 500 MG/250 ML 500 MG/250 ML BAG IV SCH (18:13)
[2021-03-03] MEDS: cefTRIAXone/NS 2 GM/100 ML 2 GM/100 ML BAG IV SCH (19:44)
[2021-03-04] MEDS ORDERED: LORazepam 2 MG/ML VIAL IV ONE (02:39)
[2021-03-04] MEDS: APIXABAN 2.5 MG TAB PO SCH ×2 (10:02→23:18)
[2021-03-04] MEDS: amLODIPine 5 MG TAB PO SCH (10:02)
[2021-03-04] MEDS: TAMSULOSIN 0.4 MG CAP PO SCH (10:02)
[2021-03-04] MEDS: allopurinoL 300 MG TAB PO SCH (10:02)
[2021-03-04] MEDS: METOPROLOL TARTRATE 50 MG TAB PO SCH ×2 (10:02→23:19)
--- NOTE | 2021-03-04 10:32 | Progress Note ---
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 Patient has diminished cognition and is unable to provide history. Patient history is provided by his who was at bedside during exam and interview. Patient reports "he is getting worse every day". Patient states that the patient has experienced increased weakness, increased confusion, as well as diminished intake over the past 1 benjamin h with persistently worsening symptoms at same timeframe. Patient is bedbound, nonambulatory and requires 6/6 assistance with activities of daily living. Patient has a palliative performance score 30% and is unable to maintain a seated position in bed. EMS was notified due to the aforementioned symptoms and upon arrival the patient was found to be in distress and subsequently transported to [facility] for further care and evaluation of the aforementioned symptoms. The patient was seen and evaluated in the emergency department. All lab and imaging studies reviewed. Patient underwent chest x-ray which revealed bilateral pneumonia. The patient was initiated on pneumonia protocol and admitted to medical floor due to increased risk of worsening symptoms. No reports of fever, chills, chest pain, palpitations, productive cough, skin rash, recent ill contacts, or known exposure to COVID-19. Prior admission on 02/20/2020 reviewed. All medication listed at time of admission has been reconciled. Advanced care planning conducted in ED. 03/03: Patient admitted and be managed for adult failure to thrive noted to have pneumonia also being treated for possible incidental finding. Of call the but was unable to get her and I left a message. My understanding from the above note indicates that the family is agreeable to hospice consult placement. Patient was still with altered sensorium required restraints for safety. We will continue current management. We will also check a COVID-19 virus infection this will also assist with placement. Case discussed with case management today. 03/04/21 patient seen and examined. Patient is lethargic. No chest pain no shortness of breath. WBC 6.9. Chest x-ray shows bilateral pneumonia. Continue neb treatment antibiotic we also check COVID-19 infection. Continue current management. Recheck CBC BMP in the morning. (1) Bilateral pneumonia Current Visit: Yes Status: Acute Plan to address problem: Pneumonia protocol: Chest x-ray, CBC, CMP, IV antibiotic therapy, supplemental oxygen, pulse oximetry, blood culture. (2) Vascular dementia with behavioral disturbance Current Visit: Yes Status: Acute Plan to address problem: Verbal prompting, verbal redirection, benzodiazepine therapy as clinically indicated. (3) Cerebral atherosclerosis Current Visit: Yes Status: Acute Plan to address problem: Risk factor reduction, antiplatelet therapy, supportive care. (4) Debility Current Visit: Yes Status: Acute Plan to address problem: Supportive care, fall precautions, supportive care. (5) Atrial fibrillation Current Visit: Yes Status: Acute (6) Hypertension Current Visit: Yes Status: Acute Qualifiers: Hypertension type: essential hypertension Qualified Code(s): I10 - Essential (primary) hypertension Plan to address problem: Monitor blood pressure every shift, continue medical management (7) GERD (gastroesophageal reflux disease) Current Visit: Yes Status: Acute Qualifiers: Esophagitis presence: without esophagitis Qualified Code(s): K21.9 - Gastro-esophageal reflux disease without esophagitis Plan to address problem: PPI therapy, supportive care. (8) DVT prophylaxis Current Visit: No Status: Acute Plan to address problem: SCD to bilateral lower extremities while in bed, continue therapeutic anticoagulation (9) Advance care planning Current Visit: Yes Status: Acute Plan to address problem: Disease education conducted, care plan discussed, diagnoses discussed, prognosis discussed, patient is full code. Patient knowledges understanding and agreement with care plan. Patient reports desire for dual evaluation. Patient lives request attempted placement in long term facility with concomitant hospice consultation. Patient information sent for home hospice evaluation. Case management consulted for possible long term facility placement. +30 minutes. History Interval history: Patient seen and examined Lab and medication is reviewed. Patient is lethargic. Hospitalist Physical - Constitutional Vitals: Temp Pulse Resp BP Pulse Ox 97.9 F 60 18 141/76 98 03/04/21 05:05 03/04/21 10:02 03/04/21 05:05 03/04/21 10:02 03/04/21 09:03 General appearance: Present: mild distress HEART Score - HEART Score Troponin: Troponin T < 0.010 ng/mL (0.00-0.029) 03/02/21 13:54 Results - Labs CBC & Chem 7: 03/02/21 13:54 03/02/21 13:54 Labs: Laboratory Last Values WBC 6.9 K/mm3 (4.5-11.0) 03/02/21 13:54 RBC 5.30 M/mm3 (3.65-5.03) H 03/02/21 13:54 Hgb 17.5 gm/dl (11.8-15.2) H 03/02/21 13:54 Hct 51.9 % (35.5-45.6) H 03/02/21 13:54 MCV 98 fl (84-94) H 03/02/21 13:54 MCH 33 pg (28-32) H 03/02/21 13:54 MCHC 34 % (32-34) 03/02/21 13:54 RDW 15.2 % (13.2-15.2) 03/02/21 13:54 Plt Count 143 K/mm3 (140-440) 03/02/21 13:54 Lymph % (Auto) 10.9 % (13.4-35.0) L 03/02/21 13:54 [place] % (Auto) 7.2 % (0.0-7.3) 03/02/21 13:54 Eos % (Auto) 1.4 % (0.0-4.3) 03/02/21 13:54 Baso % (Auto) 0.9 % (0.0-1.8) 03/02/21 13:54 Lymph # (Auto) 0.7 K/mm3 (1.2-5.4) L 03/02/21 13:54 [place] # (Auto) 0.5 K/mm3 (0.0-0.8) 03/02/21 13:54 Eos # (Auto) 0.1 K/mm3 (0.0-0.4) 03/02/21 13:54 Baso # (Auto) 0.1 K/mm3 (0.0-0.1) 03/02/21 13:54 Seg Neutrophils % 79.6 % (40.0-70.0) H 03/02/21 13:54 Seg Neutrophils # 5.5 K/mm3 (1.8-7.7) 03/02/21 13:54 PT 14.6 Sec. (12.2-14.9) 03/02/21 13:54 INR 1.09 (0.87-1.13) 03/02/21 13:54 APTT 28.1 Sec. (24.2-36.6) 03/02/21 13:54 Sodium 135 mmol/L (137-145) L 03/02/21 13:54 Potassium 4.3 mmol/L (3.6-5.0) 03/02/21 13:54 Chloride 98.9 mmol/L (98-107) 03/02/21 13:54 Carbon Dioxide 32 mmol/L (22-30) H 03/02/21 13:54 Anion Gap 8 mmol/L 03/02/21 13:54 BUN 20 mg/dL (9-20) 03/02/21 13:54 Creatinine 0.6 mg/dL (0.8-1.3) L 03/02/21 13:54 Estimated GFR > 60 ml/min 03/02/21 13:54 BUN/Creatinine Ratio 33 % 03/02/21 13:54 Glucose 92 mg/dL (75-100) 03/02/21 13:54 Lactic Acid 1.20 mmol/L (0.7-2.0) 03/02/21 13:54 Calcium 8.7 mg/dL (8.4-10.2) 03/02/21 13:54 Total Bilirubin 0.70 mg/dL (0.1-1.2) 03/02/21 13:54 Direct Bilirubin < 0.2 mg/dL (0-0.2) 03/02/21 13:54 Indirect Bilirubin 0.5 mg/dL 03/02/21 13:54 AST 19 units/L (5-40) 03/02/21 13:54 ALT 17 units/L (7-56) 03/02/21 13:54 Alkaline Phosphatase 162 units/L (35-129) H 03/02/21 13:54 Ammonia 19.0 umol/L (25-60) L 03/02/21 13:54 Total Creatine Kinase 19 units/L (55-170) L 03/02/21 13:54 Troponin T < 0.010 ng/mL (0.00-0.029) 03/02/21 13:54 Total Protein 5.8 g/dL (6.3-8.2) L 03/02/21 13:54 Albumin 3.6 g/dL (3.9-5) L 03/02/21 13:54 Albumin/Globulin Ratio 1.6 % 03/02/21 13:54 TSH 1.880 mlU/mL (0.270-4.200) 03/02/21 13:54 Urine Color Yellow (Yellow) 03/03/21 03:29 Urine Turbidity Clear (Clear) 03/03/21 03:29 Urine pH 6.0 (5.0-7.0) 03/03/21 03:29 Urine Protein 30 mg/dl mg/dL (Negative) 03/03/21 03:29 Urine Glucose (UA) Negative mg/dL (Negative) 03/03/21 03:29 Urine Ketones Negative mg/dL (Negative) 03/03/21 03:29 Urine Nitrite Negative (Negative) 03/03/21 03:29 Ur Reducing Substances Not Reportable 03/03/21 03:29 Urine Ictotest Negative (Negative) 03/03/21 03:29 Urine Urobilinogen < 2.0 mg/dL (<2.0) 03/03/21 03:29 Ur Leukocyte Esterase Negative (Negative) 03/03/21 03:29 Urine WBC (Auto) < 1.0 /HPF (0.0-6.0) 03/03/21 03:29 Urine RBC (Auto) 1.0 /HPF (0.0-6.0) 03/03/21 03:29 Urine Mucus Few /HPF 03/03/21 03:29 Microbiology: Microbiology 03/02/21 13:54 Peripheral/Venous Blood Culture - Preliminary NO GROWTH AFTER 24 HOURS 03/02/21 13:54 Peripheral/Venous Blood Culture - Preliminary NO GROWTH AFTER 24 HOURS Bruce/IV: Voiding Method Incontinent Active Medications - Current Medications Current Medications: Generic Name Dose Route Start Last Admin Trade Name Freq PRN Reason Stop Dose Admin Acetaminophen 650 mg 03/02/21 17:00 Acetaminophen 325 Mg Tab PO Q4H PRN Pain MILD(1-3)/Fever >100.5/SPRINGER Albuterol 2.5 mg 03/02/21 17:00 Albuterol 2.5 Mg/3 Ml Nebu IH Q4HRT PRN Shortness Of Breath Allopurinol 300 mg 03/03/21 10:00 03/04/21 10:02 Allopurinol 300 Mg Tab PO 300 mg DAILY JEMMA Administration Amlodipine Besylate 5 mg 03/03/21 10:00 03/04/21 10:02 Amlodipine 5 Mg Tab PO 5 mg DAILY JEMMA Administration Lipase/Protease/Amylase 1 each 03/03/21 13:00 Lipase 10,500/Protease 25,000/Amylase 43,750 (Units) Dr Francis FEEDTUBE PRN PRN For Clogged Feeding Tube Apixaban 2.5 mg 03/02/21 22:00 03/04/21 10:02 Apixaban 2.5 Mg Tab PO 2.5 mg BID JEMMA Administration Flecainide Acetate 50 mg 03/02/21 22:00 03/03/21 21:39 Flecainide 100 Mg Tab PO 50 mg Q12HR JEMMA Administration Ceftriaxone Sodium 2 gm in 100 mls @ 200 mls/hr 03/02/21 18:00 03/03/21 19:44 Rocephin/Ns 2 Gm/100 Ml IV 03/06/21 20:59 200 mls/hr Q24H JEMMA Administration Protocol Azithromycin 500 mg in 250 mls @ 250 mls/hr 03/02/21 18:00 03/03/21 18:13 Zithromax/Ns IV 03/06/21 18:59 250 mls/hr Q24H JEMMA Administration Protocol Memantine 10 mg 03/02/21 22:00 03/03/21 21:40 Memantine 10 Mg Tab PO 10 mg BID JEMMA Administration Metoprolol Tartrate 50 mg 03/02/21 22:00 03/04/21 10:02 Metoprolol Tartrate 50 Mg Tab PO 50 mg BID JEMMA Administration Ondansetron HCl 4 mg 03/02/21 17:00 Ondansetron 4 Mg/2 Ml Inj IV Q8H PRN Nausea And Vomiting Rivastigmine 4.6 mg 03/03/21 10:00 03/03/21 11:45 Rivastigmine 4.6 Mg/24 Hr Patch TD 4.6 mg DAILY JEMMA Administration Simple Syrup 15 ml 03/03/21 13:00 Simple Syrup 15 Ml FEEDTUBE PRN PRN Hypoglycemia Simple Syrup 30 ml 03/03/21 13:00 Simple Syrup 15 Ml FEEDTUBE PRN PRN Hypoglycemia Sodium Bicarbonate 325 mg 03/03/21 12:29 Sodium Bicarbonate 325 Mg Tab FEEDTUBE PRN PRN For Clogged Feeding Tube Sodium Chloride 10 ml 03/02/21 22:00 03/04/21 10:03 Sodium Chloride 0.9% 10 Ml Flush Syringe IV 10 ml BID JEMMA Administration Sodium Chloride 10 ml 03/02/21 17:00 Sodium Chloride 0.9% 10 Ml Flush Syringe IV PRN PRN LINE FLUSH Tamsulosin HCl 0.4 mg 03/03/21 10:00 03/04/21 10:02 Tamsulosin 0.4 Mg Cap PO 0.4 mg DAILY JEMMA Administration Nutrition/Malnutrition Assess - Dietary Evaluation Nutrition/Malnutrition Findings: Nutrition Notes Start: 03/03/21 12:22 Freq: Status: Active Protocol: Document 03/03/21 12:23 (Rec: 03/03/21 12:29 [id number]) Nutrition Notes Need for Assessment generated from: MD Order Initial or Follow up Assessment Current Diagnosis COPD,Hypertension,Stroke Other Pertinent Diagnosis pneu, dementia, debility, dysphagia with PEG, GERD, FTT Current Diet No diet Labs/Tests Reviewed Pertinent Medications Reviewed Height 5 ft 8 in Weight 68.039 kg [place] Body Weight (kg) 70.00 BMI 22.8 Weight Status Appropriate Subjective/Other Information MD order for TF. Pt with PEG. Burn Absent Trauma Absent Current % PO Negligible Minimum of two criteria No physical signs of malnutrition #1 Nutrition Diagnosis Inadequate oral intake Etiology dysphagia As Evidenced by Signs and Symptoms pt with PEG and unable to consume PO Is patient on ventilator? No Is Patient Ambulatory and/or Out of Bed No REE-([facility]-confined to bed) 5726.542 Calculation Used for Recommendations [facility] Additional Notes Protein: (1-1.2g/kg) 68-82g Fluid: 1 ml/kcal or per MD Nutrition Intervention Change Diet Order: Start TF Nutrition Support: Osmolite 1.5 at 45 ml/hr Flush 100 ml q4h or per MD Kcal 1,620 Protein (gm) 68 Fluid (mL) 823 Goal #1 Meet at least 75% of protein and energy needs via TF Anticipated Discharge Needs: Osmolite 1.5 at 45 ml/hr Flush 100 ml q4h or per MD Follow-Up By: 03/07/21 Additional Comments FU for TF start and tolerance - Malnutrition Assessment Minimum of two criteria: No physical signs of malnutrition - Attestation Statement I have reviewed and agreed w/ Malnutrition eval & tx plan: No
[2021-03-04] MEDS: MEMANTINE 10 MG TAB PO SCH ×2 (10:44→23:18)
[2021-03-04] MEDS: FLECAINIDE 100 MG TAB PO SCH ×2 (10:44→23:19)
[2021-03-04] MEDS: RIVASTIGMINE 4.6 MG/24 HR PATCH TD SCH (11:06)
[2021-03-04] MEDS: cefTRIAXone/NS 2 GM/100 ML 2 GM/100 ML BAG IV SCH (18:03)
[2021-03-04] MEDS: AZITHROMYCIN/NS 500 MG/250 ML 500 MG/250 ML BAG IV SCH (18:04)
[2021-03-05 06:36] LABS: Basophils # (Auto) 0.1 K/mm3 (0.0-0.1); Basophils % (Auto) 0.9 % (0.0-1.8); Eosinophils # (Auto) 0.1 K/mm3 (0.0-0.4); Hematocrit 47.9 % (35.5-45.6); Hemoglobin 16.8 gm/dl (11.8-15.2); Lymphocytes % (Auto) 13.5 % (13.4-35.0); Mean Corpuscular HGB Conc 35 % (32-34); Mean Corpuscular Volume 97 fl (84-94); Monocytes # (Auto) 0.6 K/mm3 (0.0-0.8); Monocytes % (Auto) 8.2 % (0.0-7.3); Platelet Count 134 K/mm3 (140-440); Red Blood Count 4.94 M/mm3 (3.65-5.03); Red Cell Distribution Width 15.3 % (13.2-15.2)
[2021-03-05 07:03] LABS: Blood Urea Nitrogen 12 mg/dL (9-20); Calcium 9.3 mg/dL (8.4-10.2); Hemolysis Index 11
[2021-03-05 07:11] LABS: BUN/Creatinine Ratio 24
--- NOTE | 2021-03-05 11:22 | Progress Note ---
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 Patient has diminished cognition and is unable to provide history. Patient history is provided by his who was at bedside during exam and interview. Patient reports "he is getting worse every day". Patient states that the patient has experienced increased weakness, increased confusion, as well as diminished intake over the past 1 benjamin h with persistently worsening symptoms at same timeframe. Patient is bedbound, nonambulatory and requires 6/6 assistance with activities of daily living. Patient has a palliative performance score 30% and is unable to maintain a seated position in bed. EMS was notified due to the aforementioned symptoms and upon arrival the patient was found to be in distress and subsequently transported to [facility] for further care and evaluation of the aforementioned symptoms. The patient was seen and evaluated in the emergency department. All lab and imaging studies reviewed. Patient underwent chest x-ray which revealed bilateral pneumonia. The patient was initiated on pneumonia protocol and admitted to medical floor due to increased risk of worsening symptoms. No reports of fever, chills, chest pain, palpitations, productive cough, skin rash, recent ill contacts, or known exposure to COVID-19. Prior admission on 02/20/2020 reviewed. All medication listed at time of admission has been reconciled. Advanced care planning conducted in ED. 03/03: Patient admitted and be managed for adult failure to thrive noted to have pneumonia also being treated for possible incidental finding. Of call the but was unable to get her and I left a message. My understanding from the above note indicates that the family is agreeable to hospice consult placement. Patient was still with altered sensorium required restraints for safety. We will continue current management. We will also check a COVID-19 virus infection this will also assist with placement. Case discussed with case management today. 03/04/21 patient seen and examined. Patient is lethargic. No chest pain no shortness of breath. WBC 6.9. Chest x-ray shows bilateral pneumonia. Continue neb treatment antibiotic we also check COVID-19 infection. Continue current management. Recheck CBC BMP in the morning. 03/05/21 patient seen and examined. Patient is doing better. Patient is more awake alert. WBC 7.2 hemoglobin 16.8 hematocrit 47.9. No chest pain no shortness of breath. Continue current management. Encourage p.o. intake. Case management evaluation for discharge planning. (1) Bilateral pneumonia Current Visit: Yes Status: Acute Plan to address problem: Pneumonia protocol: Chest x-ray, CBC, CMP, IV antibiotic therapy, supplemental oxygen, pulse oximetry, blood culture. (2) Vascular dementia with behavioral disturbance Current Visit: Yes Status: Acute Plan to address problem: Verbal prompting, verbal redirection, benzodiazepine therapy as clinically indicated. (3) Cerebral atherosclerosis Current Visit: Yes Status: Acute Plan to address problem: Risk factor reduction, antiplatelet therapy, supportive care. (4) Debility Current Visit: Yes Status: Acute Plan to address problem: Supportive care, fall precautions, supportive care. (5) Atrial fibrillation Current Visit: Yes Status: Acute (6) Hypertension Current Visit: Yes Status: Acute Qualifiers: Hypertension type: essential hypertension Qualified Code(s): I10 - Essential (primary) hypertension Plan to address problem: Monitor blood pressure every shift, continue medical management (7) GERD (gastroesophageal reflux disease) Current Visit: Yes Status: Acute Qualifiers: Esophagitis presence: without esophagitis Qualified Code(s): K21.9 - Gastro-esophageal reflux disease without esophagitis Plan to address problem: PPI therapy, supportive care. (8) DVT prophylaxis Current Visit: No Status: Acute Plan to address problem: SCD to bilateral lower extremities while in bed, continue therapeutic anticoagulation (9) Advance care planning Current Visit: Yes Status: Acute Plan to address problem: Disease education conducted, care plan discussed, diagnoses discussed, prognosis discussed, patient is full code. Patient knowledges understanding and agreement with care plan. Patient reports desire for dual evaluation. Patient lives request attempted placement in [facility] with concomitant hospice consultation. Patient information sent for home hospice evaluation. Case management consulted for possible [facility] facility placement. +30 minutes. History Interval history: Patient seen and examined Lab and medication is reviewed. Patient is patient is more awake alert. Denied any chest pain no shortness of breath Hospitalist Physical - Constitutional Vitals: Temp Pulse Resp BP Pulse Ox 98.2 F 60 20 148/62 93 03/05/21 05:52 03/05/21 05:52 03/05/21 05:52 03/05/21 05:52 03/05/21 05:52 General appearance: Present: mild distress - EENT Eyes: Present: PERRL, EOM intact ENT: hearing intact, clear oral mucosa - Neck Neck: Present: supple, normal ROM - Respiratory Respiratory effort: normal Respiratory: bilateral: CTA - Cardiovascular Rhythm: regular Heart Sounds: Present: S1 & S2 - Extremities Extremities: no ischemia Peripheral Pulses: within normal limits - Abdominal General gastrointestinal: soft, non-tender, normal bowel sounds - Integumentary Integumentary: Present: clear, warm, dry - Psychiatric Psychiatric: appropriate mood/affect - Neurologic Neurologic: CNII-XII intact, moves all extremities HEART Score - HEART Score Troponin: Troponin T < 0.010 ng/mL (0.00-0.029) 03/02/21 13:54 Results - Labs CBC & Chem 7: 03/05/21 05:30 03/05/21 05:30 Labs: Laboratory Last Values WBC 7.2 K/mm3 (4.5-11.0) 03/05/21 05:30 RBC 4.94 M/mm3 (3.65-5.03) 03/05/21 05:30 Hgb 16.8 gm/dl (11.8-15.2) H 03/05/21 05:30 Hct 47.9 % (35.5-45.6) H 03/05/21 05:30 MCV 97 fl (84-94) H 03/05/21 05:30 MCH 34 pg (28-32) H 03/05/21 05:30 MCHC 35 % (32-34) H 03/05/21 05:30 RDW 15.3 % (13.2-15.2) H 03/05/21 05:30 Plt Count 134 K/mm3 (140-440) L 03/05/21 05:30 Lymph % (Auto) 13.5 % (13.4-35.0) 03/05/21 05:30 Arthur % (Auto) 8.2 % (0.0-7.3) H 03/05/21 05:30 Eos % (Auto) 1.0 % (0.0-4.3) 03/05/21 05:30 Baso % (Auto) 0.9 % (0.0-1.8) 03/05/21 05:30 Lymph # (Auto) 1.0 K/mm3 (1.2-5.4) L 03/05/21 05:30 Arthur # (Auto) 0.6 K/mm3 (0.0-0.8) 03/05/21 05:30 Eos # (Auto) 0.1 K/mm3 (0.0-0.4) 03/05/21 05:30 Baso # (Auto) 0.1 K/mm3 (0.0-0.1) 03/05/21 05:30 Seg Neutrophils % 76.4 % (40.0-70.0) H 03/05/21 05:30 Seg Neutrophils # 5.5 K/mm3 (1.8-7.7) 03/05/21 05:30 PT 14.6 Sec. (12.2-14.9) 03/02/21 13:54 INR 1.09 (0.87-1.13) 03/02/21 13:54 APTT 28.1 Sec. (24.2-36.6) 03/02/21 13:54 Sodium 139 mmol/L (137-145) 03/05/21 05:30 Potassium 5.0 mmol/L (3.6-5.0) 03/05/21 05:30 Chloride 101.1 mmol/L (98-107) 03/05/21 05:30 Carbon Dioxide 27 mmol/L (22-30) 03/05/21 05:30 Anion Gap 16 mmol/L 03/05/21 05:30 BUN 12 mg/dL (9-20) 03/05/21 05:30 Creatinine 0.5 mg/dL (0.8-1.3) L 03/05/21 05:30 Estimated GFR > 60 ml/min 03/05/21 05:30 BUN/Creatinine Ratio 24 % 03/05/21 05:30 Glucose 88 mg/dL (75-100) 03/05/21 05:30 Lactic Acid 1.20 mmol/L (0.7-2.0) 03/02/21 13:54 Calcium 9.3 mg/dL (8.4-10.2) 03/05/21 05:30 Total Bilirubin 0.70 mg/dL (0.1-1.2) 03/02/21 13:54 Direct Bilirubin < 0.2 mg/dL (0-0.2) 03/02/21 13:54 Indirect Bilirubin 0.5 mg/dL 03/02/21 13:54 AST 19 units/L (5-40) 03/02/21 13:54 ALT 17 units/L (7-56) 03/02/21 13:54 Alkaline Phosphatase 162 units/L (35-129) H 03/02/21 13:54 Ammonia 19.0 umol/L (25-60) L 03/02/21 13:54 Total Creatine Kinase 19 units/L (55-170) L 03/02/21 13:54 Troponin T < 0.010 ng/mL (0.00-0.029) 03/02/21 13:54 Total Protein 5.8 g/dL (6.3-8.2) L 03/02/21 13:54 Albumin 3.6 g/dL (3.9-5) L 03/02/21 13:54 Albumin/Globulin Ratio 1.6 % 03/02/21 13:54 TSH 1.880 mlU/mL (0.270-4.200) 03/02/21 13:54 Urine Color Yellow (Yellow) 03/03/21 03:29 Urine Turbidity Clear (Clear) 03/03/21 03:29 Urine pH 6.0 (5.0-7.0) 03/03/21 03:29 Urine Protein 30 mg/dl mg/dL (Negative) 03/03/21 03:29 Urine Glucose (UA) Negative mg/dL (Negative) 03/03/21 03:29 Urine Ketones Negative mg/dL (Negative) 03/03/21 03:29 Urine Nitrite Negative (Negative) 03/03/21 03:29 Ur Reducing Substances Not Reportable 03/03/21 03:29 Urine Ictotest Negative (Negative) 03/03/21 03:29 Urine Urobilinogen < 2.0 mg/dL (<2.0) 03/03/21 03:29 Ur Leukocyte Esterase Negative (Negative) 03/03/21 03:29 Urine WBC (Auto) < 1.0 /HPF (0.0-6.0) 03/03/21 03:29 Urine RBC (Auto) 1.0 /HPF (0.0-6.0) 03/03/21 03:29 Urine Mucus Few /HPF 03/03/21 03:29 Microbiology: Microbiology 03/02/21 13:54 Peripheral/Venous Blood Culture - Preliminary NO GROWTH AFTER 48 HOURS 03/02/21 13:54 Peripheral/Venous Blood Culture - Preliminary NO GROWTH AFTER 48 HOURS Bruce/IV: Voiding Method Incontinent Active Medications - Current Medications Current Medications: Generic Name Dose Route Start Last Admin Trade Name Freq PRN Reason Stop Dose Admin Acetaminophen 650 mg 03/02/21 17:00 Acetaminophen 325 Mg Tab PO Q4H PRN Pain MILD(1-3)/Fever >100.5/SPRINGER Albuterol 2.5 mg 03/02/21 17:00 Albuterol 2.5 Mg/3 Ml Nebu IH Q4HRT PRN Shortness Of Breath Allopurinol 300 mg 03/03/21 10:00 03/04/21 10:02 Allopurinol 300 Mg Tab PO 300 mg DAILY JEMMA Administration Amlodipine Besylate 5 mg 03/03/21 10:00 03/04/21 10:02 Amlodipine 5 Mg Tab PO 5 mg DAILY JEMMA Administration Lipase/Protease/Amylase 1 each 03/03/21 13:00 Lipase 10,500/Protease 25,000/Amylase 43,750 (Units) Dr Francis FEEDTUBE PRN PRN For Clogged Feeding Tube Apixaban 2.5 mg 03/02/21 22:00 03/04/21 23:18 Apixaban 2.5 Mg Tab PO 2.5 mg BID JEMMA Administration Flecainide Acetate 50 mg 03/02/21 22:00 03/04/21 23:19 Flecainide 100 Mg Tab PO 50 mg Q12HR JEMMA Administration Ceftriaxone Sodium 2 gm in 100 mls @ 200 mls/hr 03/02/21 18:00 03/04/21 18:03 Rocephin/Ns 2 Gm/100 Ml IV 03/06/21 20:59 200 mls/hr Q24H JEMMA Administration Protocol Azithromycin 500 mg in 250 mls @ 250 mls/hr 03/02/21 18:00 03/04/21 18:04 Zithromax/Ns IV 03/06/21 18:59 250 mls/hr Q24H JEMMA Administration Protocol Memantine 10 mg 03/02/21 22:00 03/04/21 23:18 Memantine 10 Mg Tab PO 10 mg BID JEMMA Administration Metoprolol Tartrate 50 mg 03/02/21 22:00 03/04/21 23:19 Metoprolol Tartrate 50 Mg Tab PO 50 mg BID JEMMA Administration Ondansetron HCl 4 mg 03/02/21 17:00 Ondansetron 4 Mg/2 Ml Inj IV Q8H PRN Nausea And Vomiting Rivastigmine 4.6 mg 03/03/21 10:00 03/04/21 11:06 Rivastigmine 4.6 Mg/24 Hr Patch TD Not Given DAILY JEMMA Simple Syrup 15 ml 03/03/21 13:00 Simple Syrup 15 Ml FEEDTUBE PRN PRN Hypoglycemia Simple Syrup 30 ml 03/03/21 13:00 Simple Syrup 15 Ml FEEDTUBE PRN PRN Hypoglycemia Sodium Bicarbonate 325 mg 03/03/21 12:29 03/04/21 10:44 Sodium Bicarbonate 325 Mg Tab FEEDTUBE 325 mg PRN PRN Administration For Clogged Feeding Tube Sodium Chloride 10 ml 03/02/21 22:00 03/05/21 00:00 Sodium Chloride 0.9% 10 Ml Flush Syringe IV Not Given BID JEMMA Sodium Chloride 10 ml 03/02/21 17:00 Sodium Chloride 0.9% 10 Ml Flush Syringe IV PRN PRN LINE FLUSH Tamsulosin HCl 0.4 mg 03/03/21 10:00 03/04/21 10:02 Tamsulosin 0.4 Mg Cap PO 0.4 mg DAILY JEMMA Administration Nutrition/Malnutrition Assess - Dietary Evaluation Nutrition/Malnutrition Findings: Nutrition Notes Start: 03/03/21 12:22 Freq: Status: Active Protocol: Document 03/03/21 12:23 (Rec: 03/03/21 12:29 [email or web address]) Nutrition Notes Need for Assessment generated from: MD Order Initial or Follow up Assessment Current Diagnosis COPD,Hypertension,Stroke Other Pertinent Diagnosis pneu, dementia, debility, dysphagia with PEG, GERD, FTT Current Diet No diet Labs/Tests Reviewed Pertinent Medications Reviewed Height 5 ft 8 in Weight 68.039 kg [place] Body Weight (kg) 70.00 BMI 22.8 Weight Status Appropriate Subjective/Other Information MD order for TF. Pt with PEG. Burn Absent Trauma Absent Current % PO Negligible Minimum of two criteria No physical signs of malnutrition #1 Nutrition Diagnosis Inadequate oral intake Etiology dysphagia As Evidenced by Signs and Symptoms pt with PEG and unable to consume PO Is patient on ventilator? No Is Patient Ambulatory and/or Out of Bed No REE-([facility]-confined to bed) [phone] Calculation Used for Recommendations [facility] Additional Notes Protein: (1-1.2g/kg) 68-82g Fluid: 1 ml/kcal or per MD Nutrition Intervention Change Diet Order: Start TF Nutrition Support: Osmolite 1.5 at 45 ml/hr Flush 100 ml q4h or per MD Kcal 1,620 Protein (gm) 68 Fluid (mL) 823 Goal #1 Meet at least 75% of protein and energy needs via TF Anticipated Discharge Needs: Osmolite 1.5 at 45 ml/hr Flush 100 ml q4h or per MD Follow-Up By: 03/07/21 Additional Comments FU for TF start and tolerance - Malnutrition Assessment Minimum of two criteria: Yes - Attestation Statement I have reviewed and agreed w/ Malnutrition eval & tx plan: Yes
[2021-03-05] MEDS: APIXABAN 2.5 MG TAB PO SCH ×2 (12:07→21:03)
[2021-03-05] MEDS: amLODIPine 5 MG TAB PO SCH (12:07)
[2021-03-05] MEDS: METOPROLOL TARTRATE 50 MG TAB PO SCH ×2 (12:13→22:17)
[2021-03-05] MEDS: allopurinoL 300 MG TAB PO SCH (12:14)
[2021-03-05] MEDS: RIVASTIGMINE 4.6 MG/24 HR PATCH TD SCH (12:15)
[2021-03-05] MEDS: FLECAINIDE 100 MG TAB PO SCH ×2 (12:15→21:04)
[2021-03-05] MEDS: MEMANTINE 10 MG TAB PO SCH ×2 (12:16→21:03)
[2021-03-05] MEDS: TAMSULOSIN 0.4 MG CAP PO SCH (12:18)
[2021-03-05] MEDS: cefTRIAXone/NS 2 GM/100 ML 2 GM/100 ML BAG IV SCH (18:00)
[2021-03-05] MEDS: AZITHROMYCIN/NS 500 MG/250 ML 500 MG/250 ML BAG IV SCH (19:01)
--- NOTE | 2021-03-06 10:01 | Progress Note ---
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 Patient has diminished cognition and is unable to provide history. Patient history is provided by his who was at bedside during exam and interview. Patient reports "he is getting worse every day". Patient states that the patient has experienced increased weakness, increased confusion, as well as diminished intake over the past 1 month with persistently worsening symptoms at same timeframe. Patient is bedbound, nonambulatory and requires 6/6 assistance with activities of daily living. Patient has a palliative performance score 30% and is unable to maintain a seated position in bed. EMS was notified due to the aforementioned symptoms and upon arrival the patient was found to be in distress and subsequently transported to [facility] for further care and evaluation of the aforementioned symptoms. The patient was seen and evaluated in the emergency department. All lab and imaging studies reviewed. Patient underwent chest x- ray which revealed bilateral pneumonia. The patient was initiated on pneumonia protocol and admitted to medical floor due to increased risk of worsening symptoms. No reports of fever, chills, chest pain, palpitations, productive cough, skin rash, recent ill contacts, or known exposure to COVID-19. Prior admission on 02/20/2020 reviewed. All medication listed at time of admission has been reconciled. Advanced care planning conducted in ED. 03/03: Patient admitted and be managed for adult failure to thrive noted to have pneumonia also being treated for possible incidental finding. Of call the but was unable to get her and I left a message. My understanding from the above note indicates that the family is agreeable to hospice consult placement. Patient was still with altered sensorium required restraints for safety. We will continue current management. We will also check a COVID-19 virus infection this will also assist with placement. Case discussed with case management today. 03/04/21 patient seen and examined. Patient is lethargic. No chest pain no shortness of breath. WBC 6.9. Chest x-ray shows bilateral pneumonia. Continue neb treatment antibiotic we also check COVID-19 infection. Continue current management. Recheck CBC BMP in the morning. 03/05/21 patient seen and examined. Patient is doing better. Patient is more awake alert. WBC 7.2 hemoglobin 16.8 hematocrit 47.9. No chest pain no shortness of breath. Continue current management. Encourage p.o. intake. Case management evaluation for discharge planning. 03/06: Likely worsening dementia, discussed with nursing staff to remove four- point restraints and leave the patient on two-point restraints at this time. Continue current management. Awaiting placement services, hospice, home with home health. Patient is nonambulatory but will obtain OT evaluation for passive range of motion exercises. (1) Bilateral pneumonia Current Visit: Yes Status: Acute Plan to address problem: Pneumonia protocol: Chest x-ray, CBC, CMP, IV antibiotic therapy, supplemental oxygen, pulse oximetry, blood culture. (2) Vascular dementia with behavioral disturbance Current Visit: Yes Status: Acute Plan to address problem: Verbal prompting, verbal redirection, benzodiazepine therapy as clinically indicated. (3) Cerebral atherosclerosis Current Visit: Yes Status: Acute Plan to address problem: Risk factor reduction, antiplatelet therapy, supportive care. (4) Debility Current Visit: Yes Status: Acute Plan to address problem: Supportive care, fall precautions, supportive care. (5) Atrial fibrillation Current Visit: Yes Status: Acute (6) Hypertension Current Visit: Yes Status: Acute Qualifiers: Hypertension type: essential hypertension Qualified Code(s): I10 - Essential (primary) hypertension Plan to address problem: Monitor blood pressure every shift, continue medical management (7) GERD (gastroesophageal reflux disease) Current Visit: Yes Status: Acute Qualifiers: Esophagitis presence: without esophagitis Qualified Code(s): K21.9 - Gastro-esophageal reflux disease without esophagitis Plan to address problem: PPI therapy, supportive care. (8) DVT prophylaxis Current Visit: No Status: Acute Plan to address problem: SCD to bilateral lower extremities while in bed, continue therapeutic anticoagulation (9) Advance care planning Current Visit: Yes Status: Acute Plan to address problem: Disease education conducted, care plan discussed, diagnoses discussed, prognosis discussed, patient is full code. Patient knowledges understanding and agreement with care plan. Patient reports desire for dual evaluation. Patient lives request attempted placement in half-way facility with concomitant hospice consultation. Patient information sent for home hospice evaluation. Case management consulted for possible half-way facility [facility]. +30 minutes. History Interval history: Patient seen and examined this this morning awake but confused on four-point restraints Hospitalist Physical - Physical exam Narrative exam: General appearance: Present: Drowsy otherwise no acute distress noted appears normally developed - EENT Eyes: Present: PERRL ENT: clear oral mucosa, hearing decreased - Neck Neck: Present: supple, normal ROM - Respiratory Respiratory effort: normal Respiratory: bilateral: diminished - Cardiovascular Rhythm: irregularly irregular Heart Sounds: Present: S1 & S2. Absent: rub, click - Extremities Extremities: pulses symmetrical, No edema Peripheral Pulses: within normal limits - Abdominal General gastrointestinal: Present: soft, non-tender, non-distended, normal bowel sounds Male genitourinary: Present: normal - Integumentary Integumentary: Present: clear, warm, dry - Musculoskeletal Musculoskeletal: left sided weakness - Psychiatric Psychiatric: Unable to examine - Neurologic Neurologic: CNII-XII intact, focal deficits, no moves all extremities, no gait normal - Constitutional Vitals: Temp Pulse Resp BP Pulse Ox 98.1 F 61 18 150/64 94 03/06/21 05:31 03/06/21 05:31 03/06/21 06:00 03/06/21 05:31 03/06/21 06:00 General appearance: Present: mild distress HEART Score - HEART Score Troponin: Troponin T < 0.010 ng/mL (0.00-0.029) 03/02/21 13:54 Results - Labs CBC & Chem 7: 03/05/21 05:30 03/05/21 05:30 Labs: Laboratory Last Values WBC 7.2 K/mm3 (4.5-11.0) 03/05/21 05:30 RBC 4.94 M/mm3 (3.65-5.03) 03/05/21 05:30 Hgb 16.8 gm/dl (11.8-15.2) H 03/05/21 05:30 Hct 47.9 % (35.5-45.6) H 03/05/21 05:30 MCV 97 fl (84-94) H 03/05/21 05:30 MCH 34 pg (28-32) H 03/05/21 05:30 MCHC 35 % (32-34) H 03/05/21 05:30 RDW 15.3 % (13.2-15.2) H 03/05/21 05:30 Plt Count 134 K/mm3 (140-440) L 03/05/21 05:30 Lymph % (Auto) 13.5 % (13.4-35.0) 03/05/21 05:30 Christian % (Auto) 8.2 % (0.0-7.3) H 03/05/21 05:30 Eos % (Auto) 1.0 % (0.0-4.3) 03/05/21 05:30 Baso % (Auto) 0.9 % (0.0-1.8) 03/05/21 05:30 Lymph # (Auto) 1.0 K/mm3 (1.2-5.4) L 03/05/21 05:30 Christian # (Auto) 0.6 K/mm3 (0.0-0.8) 03/05/21 05:30 Eos # (Auto) 0.1 K/mm3 (0.0-0.4) 03/05/21 05:30 Baso # (Auto) 0.1 K/mm3 (0.0-0.1) 03/05/21 05:30 Seg Neutrophils % 76.4 % (40.0-70.0) H 03/05/21 05:30 Seg Neutrophils # 5.5 K/mm3 (1.8-7.7) 03/05/21 05:30 PT 14.6 Sec. (12.2-14.9) 03/02/21 13:54 INR 1.09 (0.87-1.13) 03/02/21 13:54 APTT 28.1 Sec. (24.2-36.6) 03/02/21 13:54 Sodium 139 mmol/L (137-145) 03/05/21 05:30 Potassium 5.0 mmol/L (3.6-5.0) 03/05/21 05:30 Chloride 101.1 mmol/L (98-107) 03/05/21 05:30 Carbon Dioxide 27 mmol/L (22-30) 03/05/21 05:30 Anion Gap 16 mmol/L 03/05/21 05:30 BUN 12 mg/dL (9-20) 03/05/21 05:30 Creatinine 0.5 mg/dL (0.8-1.3) L 03/05/21 05:30 Estimated GFR > 60 ml/min 03/05/21 05:30 BUN/Creatinine Ratio 24 % 03/05/21 05:30 Glucose 88 mg/dL (75-100) 03/05/21 05:30 Lactic Acid 1.20 mmol/L (0.7-2.0) 03/02/21 13:54 Calcium 9.3 mg/dL (8.4-10.2) 03/05/21 05:30 Total Bilirubin 0.70 mg/dL (0.1-1.2) 03/02/21 13:54 Direct Bilirubin < 0.2 mg/dL (0-0.2) 03/02/21 13:54 Indirect Bilirubin 0.5 mg/dL 03/02/21 13:54 AST 19 units/L (5-40) 03/02/21 13:54 ALT 17 units/L (7-56) 03/02/21 13:54 Alkaline Phosphatase 162 units/L (35-129) H 03/02/21 13:54 Ammonia 19.0 umol/L (25-60) L 03/02/21 13:54 Total Creatine Kinase 19 units/L (55-170) L 03/02/21 13:54 Troponin T < 0.010 ng/mL (0.00-0.029) 03/02/21 13:54 Total Protein 5.8 g/dL (6.3-8.2) L 03/02/21 13:54 Albumin 3.6 g/dL (3.9-5) L 03/02/21 13:54 Albumin/Globulin Ratio 1.6 % 03/02/21 13:54 TSH 1.880 mlU/mL (0.270-4.200) 03/02/21 13:54 Urine Color Yellow (Yellow) 03/03/21 03:29 Urine Turbidity Clear (Clear) 03/03/21 03:29 Urine pH 6.0 (5.0-7.0) 03/03/21 03:29 Urine Protein 30 mg/dl mg/dL (Negative) 03/03/21 03:29 Urine Glucose (UA) Negative mg/dL (Negative) 03/03/21 03:29 Urine Ketones Negative mg/dL (Negative) 03/03/21 03:29 Urine Nitrite Negative (Negative) 03/03/21 03:29 Ur Reducing Substances Not Reportable 03/03/21 03:29 Urine Ictotest Negative (Negative) 03/03/21 03:29 Urine Urobilinogen < 2.0 mg/dL (<2.0) 03/03/21 03:29 Ur Leukocyte Esterase Negative (Negative) 03/03/21 03:29 Urine WBC (Auto) < 1.0 /HPF (0.0-6.0) 03/03/21 03:29 Urine RBC (Auto) 1.0 /HPF (0.0-6.0) 03/03/21 03:29 Urine Mucus Few /HPF 03/03/21 03:29 Microbiology: Microbiology 03/02/21 13:54 Peripheral/Venous Blood Culture - Preliminary NO GROWTH AFTER 72 HOURS 03/02/21 13:54 Peripheral/Venous Blood Culture - Preliminary NO GROWTH AFTER 72 HOURS Bruce/IV: Voiding Method Condom Catheter Active Medications - Current Medications Current Medications: Generic Name Dose Route Start Last Admin Trade Name Freq PRN Reason Stop Dose Admin Acetaminophen 650 mg 03/02/21 17:00 Acetaminophen 325 Mg Tab PO Q4H PRN Pain MILD(1-3)/Fever >100.5/SPRINGER Albuterol 2.5 mg 03/02/21 17:00 Albuterol 2.5 Mg/3 Ml Nebu IH Q4HRT PRN Shortness Of Breath Allopurinol 300 mg 03/03/21 10:00 03/05/21 12:14 Allopurinol 300 Mg Tab PO 300 mg DAILY JEMMA Administration Amlodipine Besylate 5 mg 03/03/21 10:00 03/05/21 12:07 Amlodipine 5 Mg Tab PO 5 mg DAILY JEMMA Administration Lipase/Protease/Amylase 1 each 03/03/21 13:00 Lipase 10,500/Protease 25,000/Amylase 43,750 (Units) Dr Francis FEEDTUBE PRN PRN For Clogged Feeding Tube Apixaban 2.5 mg 03/02/21 22:00 03/05/21 21:03 Apixaban 2.5 Mg Tab PO 2.5 mg BID JEMMA Administration Flecainide Acetate 50 mg 03/02/21 22:00 03/05/21 21:04 Flecainide 100 Mg Tab PO 50 mg Q12HR JEMMA Administration Ceftriaxone Sodium 2 gm in 100 mls @ 200 mls/hr 03/02/21 18:00 03/05/21 18:00 Rocephin/Ns 2 Gm/100 Ml IV 03/06/21 20:59 200 mls/hr Q24H JEMMA Administration Protocol Azithromycin 500 mg in 250 mls @ 250 mls/hr 03/02/21 18:00 03/05/21 21:01 Zithromax/Ns IV 03/06/21 18:59 Infused Q24H JEMMA Infusion Protocol Memantine 10 mg 03/02/21 22:00 03/05/21 21:03 Memantine 10 Mg Tab PO 10 mg BID JEMMA Administration Metoprolol Tartrate 50 mg 03/02/21 22:00 03/05/21 22:17 Metoprolol Tartrate 50 Mg Tab PO 50 mg BID JEMMA Administration Ondansetron HCl 4 mg 03/02/21 17:00 Ondansetron 4 Mg/2 Ml Inj IV Q8H PRN Nausea And Vomiting Rivastigmine 4.6 mg 03/03/21 10:00 03/05/21 12:15 Rivastigmine 4.6 Mg/24 Hr Patch TD 4.6 mg DAILY JEMMA Administration Simple Syrup 15 ml 03/03/21 13:00 Simple Syrup 15 Ml FEEDTUBE PRN PRN Hypoglycemia Simple Syrup 30 ml 03/03/21 13:00 Simple Syrup 15 Ml FEEDTUBE PRN PRN Hypoglycemia Sodium Bicarbonate 325 mg 03/03/21 12:29 03/04/21 10:44 Sodium Bicarbonate 325 Mg Tab FEEDTUBE 325 mg PRN PRN Administration For Clogged Feeding Tube Sodium Chloride 10 ml 03/02/21 22:00 03/05/21 21:03 Sodium Chloride 0.9% 10 Ml Flush Syringe IV 10 ml BID JEMMA Administration Sodium Chloride 10 ml 03/02/21 17:00 Sodium Chloride 0.9% 10 Ml Flush Syringe IV PRN PRN LINE FLUSH Tamsulosin HCl 0.4 mg 03/03/21 10:00 03/05/21 12:18 Tamsulosin 0.4 Mg Cap PO 0.4 mg DAILY JEMMA Administration Nutrition/Malnutrition Assess - Dietary Evaluation Nutrition/Malnutrition Findings: Nutrition Notes Start: 03/03/21 12:22 Freq: Status: Active Protocol: Document 03/03/21 12:23 LINDEN (Rec: 03/03/21 12:29 LINDEN [email or web address]) Nutrition Notes Need for Assessment generated from: MD Order Initial or Follow up Assessment Current Diagnosis COPD,Hypertension,Stroke Other Pertinent Diagnosis pneu, dementia, debility, dysphagia with PEG, GERD, FTT Current Diet No diet Labs/Tests Reviewed Pertinent Medications Reviewed Height 5 ft 8 in Weight 68.039 kg [place] Body Weight (kg) 70.00 BMI 22.8 Weight Status Appropriate Subjective/Other Information MD order for TF. Pt with PEG. Burn Absent Trauma Absent Current % PO Negligible Minimum of two criteria No physical signs of malnutrition #1 Nutrition Diagnosis Inadequate oral intake Etiology dysphagia As Evidenced by Signs and Symptoms pt with PEG and unable to consume PO Is patient on ventilator? No Is Patient Ambulatory and/or Out of Bed No REE-([facility]-confined to bed) 9786.304 Calculation Used for Recommendations [facility] Additional Notes Protein: (1-1.2g/kg) 68-82g Fluid: 1 ml/kcal or per MD Nutrition Intervention Change Diet Order: Start TF Nutrition Support: Osmolite 1.5 at 45 ml/hr Flush 100 ml q4h or per MD Kcal 1,620 Protein (gm) 68 Fluid (mL) 823 Goal #1 Meet at least 75% of protein and energy needs via TF Anticipated Discharge Needs: Osmolite 1.5 at 45 ml/hr Flush 100 ml q4h or per MD Follow-Up By: 03/07/21 Additional Comments FU for TF start and tolerance
[2021-03-06] MEDS: TAMSULOSIN 0.4 MG CAP PO SCH (11:11)
[2021-03-06] MEDS: amLODIPine 5 MG TAB PO SCH (11:11)
[2021-03-06] MEDS: METOPROLOL TARTRATE 50 MG TAB PO SCH ×2 (11:12→22:39)
[2021-03-06] MEDS: MEMANTINE 10 MG TAB PO SCH ×2 (11:12→22:39)
[2021-03-06] MEDS: APIXABAN 2.5 MG TAB PO SCH ×2 (11:12→22:39)
[2021-03-06] MEDS: RIVASTIGMINE 4.6 MG/24 HR PATCH TD SCH (11:14)
[2021-03-06] MEDS: FLECAINIDE 100 MG TAB PO SCH ×2 (11:14→22:39)
[2021-03-06] MEDS: FOLIC ACID 1 MG TAB PO SCH (11:19)
[2021-03-06] MEDS: allopurinoL 300 MG TAB PO SCH (11:20)
[2021-03-06] MEDS: THIAMINE 100 MG in SODIUM CHLORIDE 0.9% 50 ML IV SCH (12:56)
[2021-03-06] MEDS: cefTRIAXone/NS 2 GM/100 ML 2 GM/100 ML BAG IV SCH (17:34)
[2021-03-06] MEDS: AZITHROMYCIN/NS 500 MG/250 ML 500 MG/250 ML BAG IV SCH (18:09)
--- NOTE | 2021-03-07 11:24 | Progress Note ---
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 Patient has diminished cognition and is unable to provide history. Patient history is provided by his who was at bedside during exam and interview. Patient reports "he is getting worse every day". Patient states that the patient has experienced increased weakness, increased confusion, as well as diminished intake over the past 1 month with persistently worsening symptoms at same timeframe. Patient is bedbound, nonambulatory and requires 6/6 assistance with activities of daily living. Patient has a palliative performance score 30% and is unable to maintain a seated position in bed. EMS was notified due to the aforementioned symptoms and upon arrival the patient was found to be in distress and subsequently transported to [facility] for further care and evaluation of the aforementioned symptoms. The patient was seen and evaluated in the emergency department. All lab and imaging studies reviewed. Patient underwent chest x- ray which revealed bilateral pneumonia. The patient was initiated on pneumonia protocol and admitted to medical floor due to increased risk of worsening symptoms. No reports of fever, chills, chest pain, palpitations, productive cough, skin rash, recent ill contacts, or known exposure to COVID-19. Prior admission on 02/20/2020 reviewed. All medication listed at time of admission has been reconciled. Advanced care planning conducted in ED. 03/03: Patient admitted and be managed for adult failure to thrive noted to have pneumonia also being treated for possible incidental finding. Of call the but was unable to get her and I left a message. My understanding from the above note indicates that the family is agreeable to hospice consult placement. Patient was still with altered sensorium required restraints for safety. We will continue current management. We will also check a COVID-19 virus infection this will also assist with placement. Case discussed with case management today. 03/04/21 patient seen and examined. Patient is lethargic. No chest pain no shortness of breath. WBC 6.9. Chest x-ray shows bilateral pneumonia. Continue neb treatment antibiotic we also check COVID-19 infection. Continue current management. Recheck CBC BMP in the morning. 03/05/21 patient seen and examined. Patient is doing better. Patient is more awake alert. WBC 7.2 hemoglobin 16.8 hematocrit 47.9. No chest pain no shortness of breath. Continue current management. Encourage p.o. intake. Case management evaluation for discharge planning. 03/06: Likely worsening dementia, discussed with nursing staff to remove four- point restraints and leave the patient on two-point restraints at this time. Continue current management. Awaiting placement services, hospice, home with home health. Patient is nonambulatory but will obtain OT evaluation for passive range of motion exercises. 03/07: Patient clinically stable although confusion still persist. Case management working with family to determine disposition. Complete antibiotic therapy cultures have been negative. (1) Bilateral pneumonia Current Visit: Yes Status: Acute Plan to address problem: Pneumonia protocol: Chest x-ray, CBC, CMP, IV antibiotic therapy, supplemental oxygen, pulse oximetry, blood culture. (2) Vascular dementia with behavioral disturbance Current Visit: Yes Status: Acute Plan to address problem: Verbal prompting, verbal redirection, benzodiazepine therapy as clinically indicated. (3) Cerebral atherosclerosis Current Visit: Yes Status: Acute Plan to address problem: Risk factor reduction, antiplatelet therapy, supportive care. (4) Debility Current Visit: Yes Status: Acute Plan to address problem: Supportive care, fall precautions, supportive care. (5) Atrial fibrillation Current Visit: Yes Status: Acute (6) Hypertension Current Visit: Yes Status: Acute Qualifiers: Hypertension type: essential hypertension Qualified Code(s): I10 - Essential (primary) hypertension Plan to address problem: Monitor blood pressure every shift, continue medical management (7) GERD (gastroesophageal reflux disease) Current Visit: Yes Status: Acute Qualifiers: Esophagitis presence: without esophagitis Qualified Code(s): K21.9 - Gastro-esophageal reflux disease without esophagitis Plan to address problem: PPI therapy, supportive care. (8) DVT prophylaxis Current Visit: No Status: Acute Plan to address problem: SCD to bilateral lower extremities while in bed, continue therapeutic anticoagulation (9) Advance care planning Current Visit: Yes Status: Acute Plan to address problem: Disease education conducted, care plan discussed, diagnoses discussed, prognosis discussed, patient is full code. Patient knowledges understanding and agreement with care plan. Patient reports desire for dual evaluation. Patient lives request attempted placement in snf facility with concomitant hospice consultation. Patient information sent for home hospice evaluation. Case management consulted for possible snf facility placement. +30 minutes. History Interval history: Patient seen and examined this this morning awake but confused on two-point restraints Hospitalist Physical - Physical exam Narrative exam: General appearance: Present: Drowsy otherwise no acute distress noted appears normally developed - EENT Eyes: Present: PERRL ENT: clear oral mucosa, hearing decreased - Neck Neck: Present: supple, normal ROM - Respiratory Respiratory effort: normal Respiratory: bilateral: diminished - Cardiovascular Rhythm: irregularly irregular Heart Sounds: Present: S1 & S2. Absent: rub, click - Extremities Extremities: pulses symmetrical, No edema Peripheral Pulses: within normal limits - Abdominal General gastrointestinal: Present: soft, non-tender, non-distended, normal bowel sounds Male genitourinary: Present: normal - Integumentary Integumentary: Present: clear, warm, dry - Musculoskeletal Musculoskeletal: left sided weakness - Psychiatric Psychiatric: Unable to examine - Neurologic Neurologic: CNII-XII intact, focal deficits, no moves all extremities, no gait normal - Constitutional Vitals: Temp Pulse Resp BP Pulse Ox 98.3 F 60 18 136/63 100 03/07/21 04:19 03/07/21 04:19 03/07/21 04:19 03/07/21 04:19 03/07/21 09:03 General appearance: Present: mild distress HEART Score - HEART Score Troponin: Troponin T < 0.010 ng/mL (0.00-0.029) 03/02/21 13:54 Results - Labs CBC & Chem 7: 03/05/21 05:30 03/05/21 05:30 Labs: Laboratory Last Values WBC 7.2 K/mm3 (4.5-11.0) 03/05/21 05:30 RBC 4.94 M/mm3 (3.65-5.03) 03/05/21 05:30 Hgb 16.8 gm/dl (11.8-15.2) H 03/05/21 05:30 Hct 47.9 % (35.5-45.6) H 03/05/21 05:30 MCV 97 fl (84-94) H 03/05/21 05:30 MCH 34 pg (28-32) H 03/05/21 05:30 MCHC 35 % (32-34) H 03/05/21 05:30 RDW 15.3 % (13.2-15.2) H 03/05/21 05:30 Plt Count 134 K/mm3 (140-440) L 03/05/21 05:30 Lymph % (Auto) 13.5 % (13.4-35.0) 03/05/21 05:30 [place] % (Auto) 8.2 % (0.0-7.3) H 03/05/21 05:30 Eos % (Auto) 1.0 % (0.0-4.3) 03/05/21 05:30 Baso % (Auto) 0.9 % (0.0-1.8) 03/05/21 05:30 Lymph # (Auto) 1.0 K/mm3 (1.2-5.4) L 03/05/21 05:30 [place] # (Auto) 0.6 K/mm3 (0.0-0.8) 03/05/21 05:30 Eos # (Auto) 0.1 K/mm3 (0.0-0.4) 03/05/21 05:30 Baso # (Auto) 0.1 K/mm3 (0.0-0.1) 03/05/21 05:30 Seg Neutrophils % 76.4 % (40.0-70.0) H 03/05/21 05:30 Seg Neutrophils # 5.5 K/mm3 (1.8-7.7) 03/05/21 05:30 PT 14.6 Sec. (12.2-14.9) 03/02/21 13:54 INR 1.09 (0.87-1.13) 03/02/21 13:54 APTT 28.1 Sec. (24.2-36.6) 03/02/21 13:54 Sodium 139 mmol/L (137-145) 03/05/21 05:30 Potassium 5.0 mmol/L (3.6-5.0) 03/05/21 05:30 Chloride 101.1 mmol/L (98-107) 03/05/21 05:30 Carbon Dioxide 27 mmol/L (22-30) 03/05/21 05:30 Anion Gap 16 mmol/L 03/05/21 05:30 BUN 12 mg/dL (9-20) 03/05/21 05:30 Creatinine 0.5 mg/dL (0.8-1.3) L 03/05/21 05:30 Estimated GFR > 60 ml/min 03/05/21 05:30 BUN/Creatinine Ratio 24 % 03/05/21 05:30 Glucose 88 mg/dL (75-100) 03/05/21 05:30 Lactic Acid 1.20 mmol/L (0.7-2.0) 03/02/21 13:54 Calcium 9.3 mg/dL (8.4-10.2) 03/05/21 05:30 Total Bilirubin 0.70 mg/dL (0.1-1.2) 03/02/21 13:54 Direct Bilirubin < 0.2 mg/dL (0-0.2) 03/02/21 13:54 Indirect Bilirubin 0.5 mg/dL 03/02/21 13:54 AST 19 units/L (5-40) 03/02/21 13:54 ALT 17 units/L (7-56) 03/02/21 13:54 Alkaline Phosphatase 162 units/L (35-129) H 03/02/21 13:54 Ammonia 19.0 umol/L (25-60) L 03/02/21 13:54 Total Creatine Kinase 19 units/L (55-170) L 03/02/21 13:54 Troponin T < 0.010 ng/mL (0.00-0.029) 03/02/21 13:54 Total Protein 5.8 g/dL (6.3-8.2) L 03/02/21 13:54 Albumin 3.6 g/dL (3.9-5) L 03/02/21 13:54 Albumin/Globulin Ratio 1.6 % 03/02/21 13:54 Vitamin B12 821.6 pg/mL (211-911) 03/06/21 14:41 TSH 1.880 mlU/mL (0.270-4.200) 03/02/21 13:54 Urine Color Yellow (Yellow) 03/03/21 03:29 Urine Turbidity Clear (Clear) 03/03/21 03:29 Urine pH 6.0 (5.0-7.0) 03/03/21 03:29 Urine Protein 30 mg/dl mg/dL (Negative) 03/03/21 03:29 Urine Glucose (UA) Negative mg/dL (Negative) 03/03/21 03:29 Urine Ketones Negative mg/dL (Negative) 03/03/21 03:29 Urine Nitrite Negative (Negative) 03/03/21 03:29 Ur Reducing Substances Not Reportable 03/03/21 03:29 Urine Ictotest Negative (Negative) 03/03/21 03:29 Urine Urobilinogen < 2.0 mg/dL (<2.0) 03/03/21 03:29 Ur Leukocyte Esterase Negative (Negative) 03/03/21 03:29 Urine WBC (Auto) < 1.0 /HPF (0.0-6.0) 03/03/21 03:29 Urine RBC (Auto) 1.0 /HPF (0.0-6.0) 03/03/21 03:29 Urine Mucus Few /HPF 03/03/21 03:29 Microbiology: Microbiology 03/02/21 13:54 Peripheral/Venous Blood Culture - Preliminary NO GROWTH AFTER 4 DAYS 03/02/21 13:54 Peripheral/Venous Blood Culture - Preliminary NO GROWTH AFTER 4 DAYS Bruce/IV: Voiding Method Condom Catheter Active Medications - Current Medications Current Medications: Generic Name Dose Route Start Last Admin Trade Name Freq PRN Reason Stop Dose Admin Acetaminophen 650 mg 03/02/21 17:00 Acetaminophen 325 Mg Tab PO Q4H PRN Pain MILD(1-3)/Fever >100.5/SPRINGER Albuterol 2.5 mg 03/02/21 17:00 Albuterol 2.5 Mg/3 Ml Nebu IH Q4HRT PRN Shortness Of Breath Allopurinol 300 mg 03/03/21 10:00 03/06/21 11:20 Allopurinol 300 Mg Tab PO 300 mg DAILY JEMMA Administration Amlodipine Besylate 5 mg 03/03/21 10:00 03/06/21 11:11 Amlodipine 5 Mg Tab PO 5 mg DAILY JEMMA Administration Lipase/Protease/Amylase 1 each 03/03/21 13:00 Lipase 10,500/Protease 25,000/Amylase 43,750 (Units) Dr Francis FEEDTUBE PRN PRN For Clogged Feeding Tube Apixaban 2.5 mg 03/02/21 22:00 03/06/21 22:39 Apixaban 2.5 Mg Tab PO 2.5 mg BID JEMMA Administration Flecainide Acetate 50 mg 03/02/21 22:00 03/06/21 22:39 Flecainide 100 Mg Tab PO 50 mg Q12HR JEMMA Administration Folic Acid 1 mg 03/06/21 11:00 03/06/21 11:19 Folic Acid 1 Mg Tab PO 1 mg QDAY JEMMA Administration Thiamine HCl 100 mg/ Sodium 51 mls @ 100 mls/hr 03/06/21 11:00 03/06/21 12:56 Chloride IV 100 mls/hr QDAY JEMMA Administration Memantine 10 mg 03/02/21 22:00 03/06/21 22:39 Memantine 10 Mg Tab PO 10 mg BID JEMMA Administration Metoprolol Tartrate 50 mg 03/02/21 22:00 03/06/21 22:39 Metoprolol Tartrate 50 Mg Tab PO 50 mg BID JEMMA Administration Ondansetron HCl 4 mg 03/02/21 17:00 Ondansetron 4 Mg/2 Ml Inj IV Q8H PRN Nausea And Vomiting Rivastigmine 4.6 mg 03/03/21 10:00 03/06/21 11:14 Rivastigmine 4.6 Mg/24 Hr Patch TD 4.6 mg DAILY JEMMA Administration Simple Syrup 15 ml 03/03/21 13:00 Simple Syrup 15 Ml FEEDTUBE PRN PRN Hypoglycemia Simple Syrup 30 ml 03/03/21 13:00 Simple Syrup 15 Ml FEEDTUBE PRN PRN Hypoglycemia Sodium Bicarbonate 325 mg 03/03/21 12:29 03/04/21 10:44 Sodium Bicarbonate 325 Mg Tab FEEDTUBE 325 mg PRN PRN Administration For Clogged Feeding Tube Sodium Chloride 10 ml 03/02/21 22:00 03/06/21 22:40 Sodium Chloride 0.9% 10 Ml Flush Syringe IV 10 ml BID JEMMA Administration Sodium Chloride 10 ml 03/02/21 17:00 Sodium Chloride 0.9% 10 Ml Flush Syringe IV PRN PRN LINE FLUSH Tamsulosin HCl 0.4 mg 03/03/21 10:00 03/06/21 11:11 Tamsulosin 0.4 Mg Cap PO 0.4 mg DAILY JEMMA Administration Nutrition/Malnutrition Assess - Dietary Evaluation Nutrition/Malnutrition Findings: Nutrition Notes Start: 03/03/21 12:22 Freq: Status: Active Protocol: Document 03/03/21 12:23 LINDEN (Rec: 03/03/21 12:29 LINDEN [email or web address]) Nutrition Notes Need for Assessment generated from: MD Order Initial or Follow up Assessment Current Diagnosis COPD,Hypertension,Stroke Other Pertinent Diagnosis pneu, dementia, debility, dysphagia with PEG, GERD, FTT Current Diet No diet Labs/Tests Reviewed Pertinent Medications Reviewed Height 5 ft 8 in Weight 68.039 kg [place] Body Weight (kg) 70.00 BMI 22.8 Weight Status Appropriate Subjective/Other Information MD order for TF. Pt with PEG. Burn Absent Trauma Absent Current % PO Negligible Minimum of two criteria No physical signs of malnutrition #1 Nutrition Diagnosis Inadequate oral intake Etiology dysphagia As Evidenced by Signs and Symptoms pt with PEG and unable to consume PO Is patient on ventilator? No Is Patient Ambulatory and/or Out of Bed No REE-([facility]-confined to bed) 5745.610 Calculation Used for Recommendations [facility] Additional Notes Protein: (1-1.2g/kg) 68-82g Fluid: 1 ml/kcal or per MD Nutrition Intervention Change Diet Order: Start TF Nutrition Support: Osmolite 1.5 at 45 ml/hr Flush 100 ml q4h or per MD Kcal 1,620 Protein (gm) 68 Fluid (mL) 823 Goal #1 Meet at least 75% of protein and energy needs via TF Anticipated Discharge Needs: Osmolite 1.5 at 45 ml/hr Flush 100 ml q4h or per MD Follow-Up By: 03/07/21 Additional Comments FU for TF start and tolerance
[2021-03-07] MEDS: FOLIC ACID 1 MG TAB PO SCH (13:24)
[2021-03-07] MEDS: METOPROLOL TARTRATE 50 MG TAB PO SCH ×2 (13:24→23:11)
[2021-03-07] MEDS: TAMSULOSIN 0.4 MG CAP PO SCH (13:24)
[2021-03-07] MEDS: APIXABAN 2.5 MG TAB PO SCH ×2 (13:24→23:12)
[2021-03-07] MEDS: amLODIPine 5 MG TAB PO SCH (13:24)
[2021-03-07] MEDS: allopurinoL 300 MG TAB PO SCH (13:24)
[2021-03-07] MEDS: RIVASTIGMINE 4.6 MG/24 HR PATCH TD SCH (13:27)
[2021-03-07] MEDS: MEMANTINE 10 MG TAB PO SCH ×2 (13:27→23:11)
[2021-03-07] MEDS: FLECAINIDE 100 MG TAB PO SCH ×2 (13:29→23:11)
[2021-03-07] MEDS: THIAMINE 100 MG in SODIUM CHLORIDE 0.9% 50 ML IV SCH (13:36)
--- NOTE | 2021-03-08 07:43 | Progress Note ---
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 Patient has diminished cognition and is unable to provide history. Patient history is provided by his who was at bedside during exam and interview. Patient reports "he is getting worse every day". Patient states that the patient has experienced increased weakness, increased confusion, as well as diminished intake over the past 1 benjamin h with persistently worsening symptoms at same timeframe. Patient is bedbound, nonambulatory and requires 6/6 assistance with activities of daily living. Patient has a palliative performance score 30% and is unable to maintain a seated position in bed. EMS was notified due to the aforementioned symptoms and upon arrival the patient was found to be in distress and subsequently transported to [facility] for further care and evaluation of the aforementioned symptoms. The patient was seen and evaluated in the emergency department. All lab and imaging studies reviewed. Patient underwent chest x-ray which revealed bilateral pneumonia. The patient was initiated on pneumonia protocol and admitted to medical floor due to increased risk of worsening symptoms. No reports of fever, chills, chest pain, palpitations, productive cough, skin rash, recent ill contacts, or known exposure to COVID-19. Prior admission on 02/20/2020 reviewed. All medication listed at time of admission has been reconciled. Advanced care planning conducted in ED. 03/03: Patient admitted and be managed for adult failure to thrive noted to have pneumonia also being treated for possible incidental finding. Of call the but was unable to get her and I left a message. My understanding from the above note indicates that the family is agreeable to hospice consult placement. Patient was still with altered sensorium required restraints for safety. We will continue current management. We will also check a COVID-19 virus infection this will also assist with placement. Case discussed with case management today. 03/04/21 patient seen and examined. Patient is lethargic. No chest pain no shortness of breath. WBC 6.9. Chest x-ray shows bilateral pneumonia. Continue neb treatment antibiotic we also check COVID-19 infection. Continue current management. Recheck CBC BMP in the morning. 03/05/21 patient seen and examined. Patient is doing better. Patient is more awake alert. WBC 7.2 hemoglobin 16.8 hematocrit 47.9. No chest pain no shortness of breath. Continue current management. Encourage p.o. intake. Case management evaluation for discharge planning. 03/06: Likely worsening dementia, discussed with nursing staff to remove four- point restraints and leave the patient on two-point restraints at this time. Continue current management. Awaiting placement services, hospice, home with home health. Patient is nonambulatory but will obtain OT evaluation for passive range of motion exercises. 03/07: Patient clinically stable although confusion still persist. Case management working with family to determine disposition. Complete antibiotic therapy cultures have been negative. 03/08/2021; patient is clinically stable, he is still confused likely due to use underlying dementia. Case management working to reach to the family to determine the disposition plan but could not reach to the family. (1) Bilateral pneumonia Current Visit: Yes Status: Acute Plan to address problem: Pneumonia protocol: Chest x-ray, CBC, CMP, IV antibiotic therapy, supplemental oxygen, pulse oximetry, blood culture. (2) Vascular dementia with behavioral disturbance Current Visit: Yes Status: Acute Plan to address problem: Verbal prompting, verbal redirection, benzodiazepine therapy as clinically indicated. (3) Cerebral atherosclerosis Current Visit: Yes Status: Acute Plan to address problem: Risk factor reduction, antiplatelet therapy, supportive care. (4) Debility Current Visit: Yes Status: Acute Plan to address problem: Supportive care, fall precautions, supportive care. (5) Atrial fibrillation Current Visit: Yes Status: Acute (6) Hypertension Current Visit: Yes Status: Acute Qualifiers: Hypertension type: essential hypertension Qualified Code(s): I10 - Essential (primary) hypertension Plan to address problem: Monitor blood pressure every shift, continue medical management (7) GERD (gastroesophageal reflux disease) Current Visit: Yes Status: Acute Qualifiers: Esophagitis presence: without esophagitis Qualified Code(s): K21.9 - Gastro-esophageal reflux disease without esophagitis Plan to address problem: PPI therapy, supportive care. (8) DVT prophylaxis Current Visit: No Status: Acute Plan to address problem: SCD to bilateral lower extremities while in bed, continue therapeutic anticoagulation (9) Advance care planning Current Visit: Yes Status: Acute Plan to address problem: Disease education conducted, care plan discussed, diagnoses discussed, prognosis discussed, patient is full code. Patient knowledges understanding and agreement with care plan. Patient reports desire for dual evaluation. Patient lives request attempted placement in retirement facility with concomitant hospice consultation. Patient information sent for home hospice evaluation. Case management consulted for possible retirement facility placement. +30 minutes. History Interval history: Patient was seen and evaluated this morning Patient was confused and on restraints Hospitalist Physical - Physical exam Narrative exam: Not in cardiopulmonary distress. The patient appeared well nourished and normally developed. Vital signs as documented. Head exam is unremarkable. No scleral icterus . Neck is without jugular venous distension, thyromegaly, or carotid bruits. Lungs are clear to auscultation. Cardiac exam reveals regular rate and Rhythm. Abdominal exam reveals normal bowel sounds, nontender, no organomegaly. Extremities are nonedematous and both femoral and pedal pulses are normal. 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 - Constitutional Vitals: Temp Pulse Resp BP Pulse Ox 97.9 F 77 18 134/76 95 03/07/21 11:02 03/07/21 21:00 03/07/21 21:42 03/07/21 11:02 03/07/21 11:02 General appearance: Present: mild distress HEART Score - HEART Score Troponin: Troponin T < 0.010 ng/mL (0.00-0.029) 03/02/21 13:54 Results - Labs CBC & Chem 7: 03/05/21 05:30 03/05/21 05:30 Labs: Laboratory Last Values WBC 7.2 K/mm3 (4.5-11.0) 03/05/21 05:30 RBC 4.94 M/mm3 (3.65-5.03) 03/05/21 05:30 Hgb 16.8 gm/dl (11.8-15.2) H 03/05/21 05:30 Hct 47.9 % (35.5-45.6) H 03/05/21 05:30 MCV 97 fl (84-94) H 03/05/21 05:30 MCH 34 pg (28-32) H 03/05/21 05:30 MCHC 35 % (32-34) H 03/05/21 05:30 RDW 15.3 % (13.2-15.2) H 03/05/21 05:30 Plt Count 134 K/mm3 (140-440) L 03/05/21 05:30 Lymph % (Auto) 13.5 % (13.4-35.0) 03/05/21 05:30 Pike % (Auto) 8.2 % (0.0-7.3) H 03/05/21 05:30 Eos % (Auto) 1.0 % (0.0-4.3) 03/05/21 05:30 Baso % (Auto) 0.9 % (0.0-1.8) 03/05/21 05:30 Lymph # (Auto) 1.0 K/mm3 (1.2-5.4) L 03/05/21 05:30 Pike # (Auto) 0.6 K/mm3 (0.0-0.8) 03/05/21 05:30 Eos # (Auto) 0.1 K/mm3 (0.0-0.4) 03/05/21 05:30 Baso # (Auto) 0.1 K/mm3 (0.0-0.1) 03/05/21 05:30 Seg Neutrophils % 76.4 % (40.0-70.0) H 03/05/21 05:30 Seg Neutrophils # 5.5 K/mm3 (1.8-7.7) 03/05/21 05:30 PT 14.6 Sec. (12.2-14.9) 03/02/21 13:54 INR 1.09 (0.87-1.13) 03/02/21 13:54 APTT 28.1 Sec. (24.2-36.6) 03/02/21 13:54 Sodium 139 mmol/L (137-145) 03/05/21 05:30 Potassium 5.0 mmol/L (3.6-5.0) 03/05/21 05:30 Chloride 101.1 mmol/L (98-107) 03/05/21 05:30 Carbon Dioxide 27 mmol/L (22-30) 03/05/21 05:30 Anion Gap 16 mmol/L 03/05/21 05:30 BUN 12 mg/dL (9-20) 03/05/21 05:30 Creatinine 0.5 mg/dL (0.8-1.3) L 03/05/21 05:30 Estimated GFR > 60 ml/min 03/05/21 05:30 BUN/Creatinine Ratio 24 % 03/05/21 05:30 Glucose 88 mg/dL (75-100) 03/05/21 05:30 Lactic Acid 1.20 mmol/L (0.7-2.0) 03/02/21 13:54 Calcium 9.3 mg/dL (8.4-10.2) 03/05/21 05:30 Total Bilirubin 0.70 mg/dL (0.1-1.2) 03/02/21 13:54 Direct Bilirubin < 0.2 mg/dL (0-0.2) 03/02/21 13:54 Indirect Bilirubin 0.5 mg/dL 03/02/21 13:54 AST 19 units/L (5-40) 03/02/21 13:54 ALT 17 units/L (7-56) 03/02/21 13:54 Alkaline Phosphatase 162 units/L (35-129) H 03/02/21 13:54 Ammonia 19.0 umol/L (25-60) L 03/02/21 13:54 Total Creatine Kinase 19 units/L (55-170) L 03/02/21 13:54 Troponin T < 0.010 ng/mL (0.00-0.029) 03/02/21 13:54 Total Protein 5.8 g/dL (6.3-8.2) L 03/02/21 13:54 Albumin 3.6 g/dL (3.9-5) L 03/02/21 13:54 Albumin/Globulin Ratio 1.6 % 03/02/21 13:54 Vitamin B12 821.6 pg/mL (211-911) 03/06/21 14:41 TSH 1.880 mlU/mL (0.270-4.200) 03/02/21 13:54 Urine Color Yellow (Yellow) 03/03/21 03:29 Urine Turbidity Clear (Clear) 03/03/21 03:29 Urine pH 6.0 (5.0-7.0) 03/03/21 03:29 Urine Protein 30 mg/dl mg/dL (Negative) 03/03/21 03:29 Urine Glucose (UA) Negative mg/dL (Negative) 03/03/21 03:29 Urine Ketones Negative mg/dL (Negative) 03/03/21 03:29 Urine Nitrite Negative (Negative) 03/03/21 03:29 Ur Reducing Substances Not Reportable 03/03/21 03:29 Urine Ictotest Negative (Negative) 03/03/21 03:29 Urine Urobilinogen < 2.0 mg/dL (<2.0) 03/03/21 03:29 Ur Leukocyte Esterase Negative (Negative) 03/03/21 03:29 Urine WBC (Auto) < 1.0 /HPF (0.0-6.0) 03/03/21 03:29 Urine RBC (Auto) 1.0 /HPF (0.0-6.0) 03/03/21 03:29 Urine Mucus Few /HPF 03/03/21 03:29 Microbiology: Microbiology 03/02/21 13:54 Peripheral/Venous Blood Culture - Final NO GROWTH AFTER 5 DAYS 03/02/21 13:54 Peripheral/Venous Blood Culture - Final NO GROWTH AFTER 5 DAYS Bruce/IV: Voiding Method Condom Catheter Active Medications - Current Medications Current Medications: Generic Name Dose Route Start Last Admin Trade Name Freq PRN Reason Stop Dose Admin Acetaminophen 650 mg 03/02/21 17:00 Acetaminophen 325 Mg Tab PO Q4H PRN Pain MILD(1-3)/Fever >100.5/SPRINGER Albuterol 2.5 mg 03/02/21 17:00 Albuterol 2.5 Mg/3 Ml Nebu IH Q4HRT PRN Shortness Of Breath Allopurinol 300 mg 03/03/21 10:00 03/07/21 13:24 Allopurinol 300 Mg Tab PO 300 mg DAILY JEMMA Administration Amlodipine Besylate 5 mg 03/03/21 10:00 03/07/21 13:24 Amlodipine 5 Mg Tab PO 5 mg DAILY JEMMA Administration Lipase/Protease/Amylase 1 each 03/03/21 13:00 Lipase 10,500/Protease 25,000/Amylase 43,750 (Units) Dr Francis FEEDTUBE PRN PRN For Clogged Feeding Tube Apixaban 2.5 mg 03/02/21 22:00 03/07/21 23:12 Apixaban 2.5 Mg Tab PO 2.5 mg BID JEMMA Administration Flecainide Acetate 50 mg 03/02/21 22:00 03/07/21 23:11 Flecainide 100 Mg Tab PO 50 mg Q12HR JEMMA Administration Folic Acid 1 mg 03/06/21 11:00 03/07/21 13:24 Folic Acid 1 Mg Tab PO 1 mg QDAY JEMMA Administration Thiamine HCl 100 mg/ Sodium 51 mls @ 100 mls/hr 03/06/21 11:00 03/07/21 13:36 Chloride IV 100 mls/hr QDAY JEMMA Administration Memantine 10 mg 03/02/21 22:00 03/07/21 23:11 Memantine 10 Mg Tab PO 10 mg BID JEMMA Administration Metoprolol Tartrate 50 mg 03/02/21 22:00 03/07/21 23:11 Metoprolol Tartrate 50 Mg Tab PO 50 mg BID JEMMA Administration Ondansetron HCl 4 mg 03/02/21 17:00 Ondansetron 4 Mg/2 Ml Inj IV Q8H PRN Nausea And Vomiting Rivastigmine 4.6 mg 03/03/21 10:00 03/07/21 13:27 Rivastigmine 4.6 Mg/24 Hr Patch TD 4.6 mg DAILY JEMMA Administration Simple Syrup 15 ml 03/03/21 13:00 Simple Syrup 15 Ml FEEDTUBE PRN PRN Hypoglycemia Simple Syrup 30 ml 03/03/21 13:00 Simple Syrup 15 Ml FEEDTUBE PRN PRN Hypoglycemia Sodium Bicarbonate 325 mg 03/03/21 12:29 03/04/21 10:44 Sodium Bicarbonate 325 Mg Tab FEEDTUBE 325 mg PRN PRN Administration For Clogged Feeding Tube Sodium Chloride 10 ml 03/02/21 22:00 03/07/21 23:12 Sodium Chloride 0.9% 10 Ml Flush Syringe IV 10 ml BID JEMMA Administration Sodium Chloride 10 ml 03/02/21 17:00 Sodium Chloride 0.9% 10 Ml Flush Syringe IV PRN PRN LINE FLUSH Tamsulosin HCl 0.4 mg 03/03/21 10:00 03/07/21 13:24 Tamsulosin 0.4 Mg Cap PO 0.4 mg DAILY JEMMA Administration Nutrition/Malnutrition Assess - Dietary Evaluation Nutrition/Malnutrition Findings: Nutrition Notes Start: 03/03/21 12:22 Freq: Status: Active Protocol: Document 03/07/21 12:27 LINDEN (Rec: 03/07/21 12:30 LINDEN [email or web address]) Nutrition Notes 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 No wounds noted. FU for new TF. Pt tolerating TF at goal rate. Pt was sleeping at time of visit and unable to wake. Percent of energy/protein needs met: 98%/100% Burn Absent Trauma Absent Current % PO Negligible Minimum of two criteria No physical signs of malnutrition #1 Nutrition Diagnosis Inadequate oral intake Diagnosis Progress(for reassessment Continues documentation) Is patient on ventilator? No Is Patient Ambulatory and/or Out of Bed No REE-([facility]-confined to bed) [phone] Calculation Used for Recommendations [facility] Additional Notes Protein: (1-1.2g/kg) 68-82g Fluid: 1 ml/kcal or per MD Nutrition Intervention Change Diet Order: Continue Nutrition Support: Osmolite 1.5 at 45 ml/hr Flush 100 ml q4h or per MD Kcal 1,620 Protein (gm) 68 Fluid (mL) 823 Goal #1 Meet at least 75% of protein and energy needs via TF Anticipated Discharge Needs: Osmolite 1.5 at 45 ml/hr Flush 100 ml q4h or per MD Follow-Up By: 03/10/21 Additional Comments FU for stable TF
[2021-03-08] MEDS: allopurinoL 300 MG TAB PO SCH (11:00)
[2021-03-08] MEDS: FOLIC ACID 1 MG TAB PO SCH (11:00)
[2021-03-08] MEDS: FLECAINIDE 100 MG TAB PO SCH ×2 (11:00→22:59)
[2021-03-08] MEDS: amLODIPine 5 MG TAB PO SCH (11:00)
[2021-03-08] MEDS: APIXABAN 2.5 MG TAB PO SCH ×2 (11:00→22:58)
[2021-03-08] MEDS: METOPROLOL TARTRATE 50 MG TAB PO SCH ×2 (11:00→22:58)
[2021-03-08] MEDS: RIVASTIGMINE 4.6 MG/24 HR PATCH TD SCH (11:01)
[2021-03-08] MEDS: TAMSULOSIN 0.4 MG CAP PO SCH (11:01)
[2021-03-08] MEDS: THIAMINE 100 MG in SODIUM CHLORIDE 0.9% 50 ML IV SCH (11:02)
--- NOTE | 2021-03-08 16:08 | Event Note ---
Date: 03/08/21 Called Ms Roman in detail about her condition and prognosis. She is considering hospice. All her questions were answered and she wants her to speak with CM and will make a decision. Her Work phone is [phone].
[2021-03-08] MEDS: MEMANTINE 10 MG TAB PO SCH ×2 (22:56→22:58)
--- NOTE | 2021-03-09 07:21 | Progress Note ---
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 Patient has diminished cognition and is unable to provide history. Patient history is provided by his who was at bedside during exam and interview. Patient reports "he is getting worse every day". Patient states that the patient has experienced increased weakness, increased confusion, as well as diminished intake over the past 1 benjamin h with persistently worsening symptoms at same timeframe. Patient is bedbound, nonambulatory and requires 6/6 assistance with activities of daily living. Patient has a palliative performance score 30% and is unable to maintain a seated position in bed. EMS was notified due to the aforementioned symptoms and upon arrival the patient was found to be in distress and subsequently transported to [facility] for further care and evaluation of the aforementioned symptoms. The patient was seen and evaluated in the emergency department. All lab and imaging studies reviewed. Patient underwent chest x-ray which revealed bilateral pneumonia. The patient was initiated on pneumonia protocol and admitted to medical floor due to increased risk of worsening symptoms. No reports of fever, chills, chest pain, palpitations, productive cough, skin rash, recent ill contacts, or known exposure to COVID-19. Prior admission on 02/20/2020 reviewed. All medication listed at time of admission has been reconciled. Advanced care planning conducted in ED. 03/03: Patient admitted and be managed for adult failure to thrive noted to have pneumonia also being treated for possible incidental finding. Of call the but was unable to get her and I left a message. My understanding from the above note indicates that the family is agreeable to hospice consult placement. Patient was still with altered sensorium required restraints for safety. We will continue current management. We will also check a COVID-19 virus infection this will also assist with placement. Case discussed with case management today. 03/04/21 patient seen and examined. Patient is lethargic. No chest pain no shortness of breath. WBC 6.9. Chest x-ray shows bilateral pneumonia. Continue neb treatment antibiotic we also check COVID-19 infection. Continue current management. Recheck CBC BMP in the morning. 03/05/21 patient seen and examined. Patient is doing better. Patient is more awake alert. WBC 7.2 hemoglobin 16.8 hematocrit 47.9. No chest pain no shortness of breath. Continue current management. Encourage p.o. intake. Case management evaluation for discharge planning. 03/06: Likely worsening dementia, discussed with nursing staff to remove four- point restraints and leave the patient on two-point restraints at this time. Continue current management. Awaiting placement services, hospice, home with home health. Patient is nonambulatory but will obtain OT evaluation for passive range of motion exercises. 03/07: Patient clinically stable although confusion still persist. Case management working with family to determine disposition. Complete antibiotic therapy cultures have been negative. 03/08/2021; patient is clinically stable, he is still confused likely due to use underlying dementia. Case management working to reach to the family to determine the disposition plan but could not reach to the family. 03/09/2021; patient is still confused on and on restraints. I have a long discussion with his yesterday and she is considering hospice. She said her sons will discuss with case management and let us know the plan. She is considering inpatient hospice. I have explained the management plan in detail. (1) Bilateral pneumonia Current Visit: Yes Status: Acute Plan to address problem: Pneumonia protocol: Chest x-ray, CBC, CMP, IV antibiotic therapy, supplemental oxygen, pulse oximetry, blood culture. (2) Vascular dementia with behavioral disturbance Current Visit: Yes Status: Acute Plan to address problem: Verbal prompting, verbal redirection, benzodiazepine therapy as clinically indicated. (3) Cerebral atherosclerosis Current Visit: Yes Status: Acute Plan to address problem: Risk factor reduction, antiplatelet therapy, supportive care. (4) Debility Current Visit: Yes Status: Acute Plan to address problem: Supportive care, fall precautions, supportive care. (5) Atrial fibrillation Current Visit: Yes Status: Acute (6) Hypertension Current Visit: Yes Status: Acute Qualifiers: Hypertension type: essential hypertension Qualified Code(s): I10 - Essential (primary) hypertension Plan to address problem: Monitor blood pressure every shift, continue medical management (7) GERD (gastroesophageal reflux disease) Current Visit: Yes Status: Acute Qualifiers: Esophagitis presence: without esophagitis Qualified Code(s): K21.9 - Gastro-esophageal reflux disease without esophagitis Plan to address problem: PPI therapy, supportive care. (8) DVT prophylaxis Current Visit: No Status: Acute Plan to address problem: SCD to bilateral lower extremities while in bed, continue therapeutic anticoagulation (9) Advance care planning Current Visit: Yes Status: Acute Plan to address problem: Disease education conducted, care plan discussed, diagnoses discussed, prognosis discussed, patient is full code. Patient knowledges understanding and agreement with care plan. Patient reports desire for dual evaluation. Patient lives request attempted placement in longterm facility with concomitant hospice consultation. Patient information sent for home hospice evaluation. Case management consulted for possible longterm facility placement. +30 minutes. History Interval history: Patient was seen and evaluated this morning Patient was confused and on restraints Hospitalist Physical - Physical exam Narrative exam: Not in cardiopulmonary distress. The patient appeared well nourished and normally developed. Vital signs as documented. Head exam is unremarkable. No scleral icterus . Neck is without jugular venous distension, thyromegaly, or carotid bruits. Lungs are clear to auscultation. Cardiac exam reveals regular rate and Rhythm. Abdominal exam reveals normal bowel sounds, nontender, no organomegaly. Extremities are nonedematous and both femoral and pedal pulses are normal. 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: Patient was confused, on restraints - Constitutional Vitals: Temp Pulse Resp BP Pulse Ox 97.6 F 61 20 141/72 93 03/09/21 06:26 03/09/21 06:26 03/09/21 06:26 03/09/21 06:26 03/09/21 06:26 General appearance: Present: mild distress HEART Score - HEART Score Troponin: Troponin T < 0.010 ng/mL (0.00-0.029) 03/02/21 13:54 Results - Labs CBC & Chem 7: 03/05/21 05:30 03/05/21 05:30 Labs: Laboratory Last Values WBC 7.2 K/mm3 (4.5-11.0) 03/05/21 05:30 RBC 4.94 M/mm3 (3.65-5.03) 03/05/21 05:30 Hgb 16.8 gm/dl (11.8-15.2) H 03/05/21 05:30 Hct 47.9 % (35.5-45.6) H 03/05/21 05:30 MCV 97 fl (84-94) H 03/05/21 05:30 MCH 34 pg (28-32) H 03/05/21 05:30 MCHC 35 % (32-34) H 03/05/21 05:30 RDW 15.3 % (13.2-15.2) H 03/05/21 05:30 Plt Count 134 K/mm3 (140-440) L 03/05/21 05:30 Lymph % (Auto) 13.5 % (13.4-35.0) 03/05/21 05:30 [place] % (Auto) 8.2 % (0.0-7.3) H 03/05/21 05:30 Eos % (Auto) 1.0 % (0.0-4.3) 03/05/21 05:30 Baso % (Auto) 0.9 % (0.0-1.8) 03/05/21 05:30 Lymph # (Auto) 1.0 K/mm3 (1.2-5.4) L 03/05/21 05:30 [place] # (Auto) 0.6 K/mm3 (0.0-0.8) 03/05/21 05:30 Eos # (Auto) 0.1 K/mm3 (0.0-0.4) 03/05/21 05:30 Baso # (Auto) 0.1 K/mm3 (0.0-0.1) 03/05/21 05:30 Seg Neutrophils % 76.4 % (40.0-70.0) H 03/05/21 05:30 Seg Neutrophils # 5.5 K/mm3 (1.8-7.7) 03/05/21 05:30 PT 14.6 Sec. (12.2-14.9) 03/02/21 13:54 INR 1.09 (0.87-1.13) 03/02/21 13:54 APTT 28.1 Sec. (24.2-36.6) 03/02/21 13:54 Sodium 139 mmol/L (137-145) 03/05/21 05:30 Potassium 5.0 mmol/L (3.6-5.0) 03/05/21 05:30 Chloride 101.1 mmol/L (98-107) 03/05/21 05:30 Carbon Dioxide 27 mmol/L (22-30) 03/05/21 05:30 Anion Gap 16 mmol/L 03/05/21 05:30 BUN 12 mg/dL (9-20) 03/05/21 05:30 Creatinine 0.5 mg/dL (0.8-1.3) L 03/05/21 05:30 Estimated GFR > 60 ml/min 03/05/21 05:30 BUN/Creatinine Ratio 24 % 03/05/21 05:30 Glucose 88 mg/dL (75-100) 03/05/21 05:30 POC Glucose 87 mg/dL (70-105) 03/09/21 06:23 Lactic Acid 1.20 mmol/L (0.7-2.0) 03/02/21 13:54 Calcium 9.3 mg/dL (8.4-10.2) 03/05/21 05:30 Total Bilirubin 0.70 mg/dL (0.1-1.2) 03/02/21 13:54 Direct Bilirubin < 0.2 mg/dL (0-0.2) 03/02/21 13:54 Indirect Bilirubin 0.5 mg/dL 03/02/21 13:54 AST 19 units/L (5-40) 03/02/21 13:54 ALT 17 units/L (7-56) 03/02/21 13:54 Alkaline Phosphatase 162 units/L (35-129) H 03/02/21 13:54 Ammonia 19.0 umol/L (25-60) L 03/02/21 13:54 Total Creatine Kinase 19 units/L (55-170) L 03/02/21 13:54 Troponin T < 0.010 ng/mL (0.00-0.029) 03/02/21 13:54 Total Protein 5.8 g/dL (6.3-8.2) L 03/02/21 13:54 Albumin 3.6 g/dL (3.9-5) L 03/02/21 13:54 Albumin/Globulin Ratio 1.6 % 03/02/21 13:54 Vitamin B12 821.6 pg/mL (211-911) 03/06/21 14:41 TSH 1.880 mlU/mL (0.270-4.200) 03/02/21 13:54 Urine Color Yellow (Yellow) 03/03/21 03:29 Urine Turbidity Clear (Clear) 03/03/21 03:29 Urine pH 6.0 (5.0-7.0) 03/03/21 03:29 Urine Protein 30 mg/dl mg/dL (Negative) 03/03/21 03:29 Urine Glucose (UA) Negative mg/dL (Negative) 03/03/21 03:29 Urine Ketones Negative mg/dL (Negative) 03/03/21 03:29 Urine Nitrite Negative (Negative) 03/03/21 03:29 Ur Reducing Substances Not Reportable 03/03/21 03:29 Urine Ictotest Negative (Negative) 03/03/21 03:29 Urine Urobilinogen < 2.0 mg/dL (<2.0) 03/03/21 03:29 Ur Leukocyte Esterase Negative (Negative) 03/03/21 03:29 Urine WBC (Auto) < 1.0 /HPF (0.0-6.0) 03/03/21 03:29 Urine RBC (Auto) 1.0 /HPF (0.0-6.0) 03/03/21 03:29 Urine Mucus Few /HPF 03/03/21 03:29 Bruce/IV: Voiding Method Condom Catheter Active Medications - Current Medications Current Medications: Generic Name Dose Route Start Last Admin Trade Name Freq PRN Reason Stop Dose Admin Acetaminophen 650 mg 03/02/21 17:00 03/08/21 23:07 Acetaminophen 325 Mg Tab PO 650 mg Q4H PRN Administration Pain MILD(1-3)/Fever >100.5/SPRINGER Albuterol 2.5 mg 03/02/21 17:00 Albuterol 2.5 Mg/3 Ml Nebu IH Q4HRT PRN Shortness Of Breath Allopurinol 300 mg 03/03/21 10:00 03/08/21 11:00 Allopurinol 300 Mg Tab PO 300 mg DAILY JEMMA Administration Amlodipine Besylate 5 mg 03/03/21 10:00 03/08/21 11:00 Amlodipine 5 Mg Tab PO 5 mg DAILY JEMMA Administration Lipase/Protease/Amylase 1 each 03/03/21 13:00 Lipase 10,500/Protease 25,000/Amylase 43,750 (Units) Dr Francis FEEDTUBE PRN PRN For Clogged Feeding Tube Apixaban 2.5 mg 03/02/21 22:00 03/08/21 22:58 Apixaban 2.5 Mg Tab PO 2.5 mg BID JEMMA Administration Flecainide Acetate 50 mg 03/02/21 22:00 03/08/21 22:59 Flecainide 100 Mg Tab PO 50 mg Q12HR JEMMA Administration Folic Acid 1 mg 03/06/21 11:00 03/08/21 11:00 Folic Acid 1 Mg Tab PO 1 mg QDAY JEMMA Administration Memantine 10 mg 03/02/21 22:00 03/08/21 22:58 Memantine 10 Mg Tab PO 10 mg BID JEMMA Administration Metoprolol Tartrate 50 mg 03/02/21 22:00 03/08/21 22:58 Metoprolol Tartrate 50 Mg Tab PO 50 mg BID JEMMA Administration Ondansetron HCl 4 mg 03/02/21 17:00 Ondansetron 4 Mg/2 Ml Inj IV Q8H PRN Nausea And Vomiting Rivastigmine 4.6 mg 03/03/21 10:00 03/08/21 11:01 Rivastigmine 4.6 Mg/24 Hr Patch TD 4.6 mg DAILY JEMMA Administration Simple Syrup 15 ml 03/03/21 13:00 Simple Syrup 15 Ml FEEDTUBE PRN PRN Hypoglycemia Simple Syrup 30 ml 03/03/21 13:00 Simple Syrup 15 Ml FEEDTUBE PRN PRN Hypoglycemia Sodium Bicarbonate 325 mg 03/03/21 12:29 03/04/21 10:44 Sodium Bicarbonate 325 Mg Tab FEEDTUBE 325 mg PRN PRN Administration For Clogged Feeding Tube Sodium Chloride 10 ml 03/02/21 22:00 03/08/21 23:00 Sodium Chloride 0.9% 10 Ml Flush Syringe IV 10 ml BID JEMMA Administration Sodium Chloride 10 ml 03/02/21 17:00 Sodium Chloride 0.9% 10 Ml Flush Syringe IV PRN PRN LINE FLUSH Tamsulosin HCl 0.4 mg 03/03/21 10:00 03/08/21 11:01 Tamsulosin 0.4 Mg Cap PO 0.4 mg DAILY JEMMA Administration Thiamine HCl 100 mg 03/09/21 10:00 Thiamine 100 Mg Tab FEEDTUBE QDAY [facility] Nutrition/Malnutrition Assess - Dietary Evaluation Nutrition/Malnutrition Findings: Nutrition Notes Start: 03/03/21 12:22 Freq: Status: Active Protocol: Document 03/07/21 12:27 (Rec: 03/07/21 12:30 LINDEN [id number]) Nutrition Notes Need for Assessment generated from: client representative Initial or Follow up Reassessment Current Diagnosis COPD,Hypertension,Stroke Other Pertinent Diagnosis pneu, dementia, debility, dysphagia with PEG, GERD, FTT Current Diet Osmolite 1.5 at 45 ml/hr Labs/Tests Reviewed Pertinent Medications Reviewed Height 5 ft 8 in Weight 68.2 kg [place] Body Weight (kg) 70.00 BMI 22.8 Weight Status Appropriate Subjective/Other Information RN screen for MST, chewing difficulty, TF, and skin risk (Justin score 16). No wounds noted. FU for new TF. Pt tolerating TF at goal rate. Pt was sleeping at time of visit and unable to wake. Percent of energy/protein needs met: 98%/100% Burn Absent Trauma Absent Current % PO Negligible Minimum of two criteria No physical signs of malnutrition #1 Nutrition Diagnosis Inadequate oral intake Diagnosis Progress(for reassessment Continues documentation) Is patient on ventilator? No Is Patient Ambulatory and/or Out of Bed No REE-([facility]-confined to bed) [phone] Calculation Used for Recommendations [facility] Additional Notes Protein: (1-1.2g/kg) 68-82g Fluid: 1 ml/kcal or per MD Nutrition Intervention Change Diet Order: Continue Nutrition Support: Osmolite 1.5 at 45 ml/hr Flush 100 ml q4h or per MD Kcal 1,620 Protein (gm) 68 Fluid (mL) 823 Goal #1 Meet at least 75% of protein and energy needs via TF Anticipated Discharge Needs: Osmolite 1.5 at 45 ml/hr Flush 100 ml q4h or per MD Follow-Up By: 03/10/21 Additional Comments FU for stable TF
[2021-03-09] MEDS: FLECAINIDE 100 MG TAB PO SCH ×2 (10:36→22:50)
[2021-03-09] MEDS: allopurinoL 300 MG TAB PO SCH (10:36)
[2021-03-09] MEDS: THIAMINE 100 MG TAB FEEDTUBE SCH (10:36)
[2021-03-09] MEDS: TAMSULOSIN 0.4 MG CAP PO SCH (10:36)
[2021-03-09] MEDS: APIXABAN 2.5 MG TAB PO SCH ×2 (10:36→22:50)
[2021-03-09] MEDS: FOLIC ACID 1 MG TAB PO SCH (10:36)
[2021-03-09] MEDS: RIVASTIGMINE 4.6 MG/24 HR PATCH TD SCH (10:37)
[2021-03-09] MEDS: MEMANTINE 10 MG TAB PO SCH ×2 (10:37→22:50)
[2021-03-09] MEDS: amLODIPine 5 MG TAB PO SCH (10:48)
[2021-03-09] MEDS: METOPROLOL TARTRATE 50 MG TAB PO SCH ×2 (10:49→22:52)
[2021-03-10] MEDS: APIXABAN 2.5 MG TAB PO SCH ×2 (11:14→21:40)
[2021-03-10] MEDS: TAMSULOSIN 0.4 MG CAP PO SCH (11:14)
[2021-03-10] MEDS: METOPROLOL TARTRATE 50 MG TAB PO SCH ×2 (11:14→21:33)
[2021-03-10] MEDS: RIVASTIGMINE 4.6 MG/24 HR PATCH TD SCH (11:15)
[2021-03-10] MEDS: FLECAINIDE 100 MG TAB PO SCH ×2 (11:15→21:33)
[2021-03-10] MEDS: amLODIPine 5 MG TAB PO SCH (11:15)
[2021-03-10] MEDS: allopurinoL 300 MG TAB PO SCH (11:15)
[2021-03-10] MEDS: THIAMINE 100 MG TAB FEEDTUBE SCH (11:15)
[2021-03-10] MEDS: MEMANTINE 10 MG TAB PO SCH ×2 (11:15→21:40)
[2021-03-10] MEDS: FOLIC ACID 1 MG TAB PO SCH (11:15)
--- NOTE | 2021-03-10 13:20 | Progress Note ---
Assessment and Plan (1) Bilateral pneumonia Current Visit: Yes Status: Acute Plan to address problem: Pneumonia protocol: Chest x-ray, CBC, CMP, IV antibiotic therapy, supplemental oxygen, pulse oximetry, blood culture. (2) Vascular dementia with behavioral disturbance Current Visit: Yes Status: Acute Plan to address problem: Verbal prompting, verbal redirection, benzodiazepine therapy as clinically indicated. Patient will require mood stabilizer for behavior. This is the only way to calm patient down and prevent injury. For now still requires restraints. (3) Cerebral atherosclerosis Current Visit: Yes Status: Acute Plan to address problem: Risk factor reduction, antiplatelet therapy, supportive care. (4) Debility Current Visit: Yes Status: Acute Plan to address problem: Supportive care, fall precautions, supportive care. (5) Atrial fibrillation Current Visit: Yes Status: Acute (6) Hypertension Current Visit: Yes Status: Acute Qualifiers: Hypertension type: essential hypertension Qualified Code(s): I10 - Essential (primary) hypertension Plan to address problem: Monitor blood pressure every shift, continue medical management Has had optimal control. (7) GERD (gastroesophageal reflux disease) Current Visit: Yes Status: Acute Qualifiers: Esophagitis presence: without esophagitis Qualified Code(s): K21.9 - Gastro-esophageal reflux disease without esophagitis Plan to address problem: PPI therapy, supportive care. (8) DVT prophylaxis Current Visit: No Status: Acute Plan to address problem: SCD to bilateral lower extremities while in bed, continue therapeutic anticoagulation (9) Advance care planning Current Visit: Yes Status: Acute Plan to address problem: Disease education conducted, care plan discussed, diagnoses discussed, prognosis discussed, patient is full code. Patient knowledges understanding and agreement with care plan. Patient reports desire for dual evaluation. Patient lives request attempted placement in retirement facility with concomitant hospice consultation. Patient information sent for home hospice evaluation. Did discuss case with retirement facility and not able to take care of him at [place] at this time. History Subjective Date of service: 03/10/21 Interval history: 80 YO Male with Vascular Dementia with Behavioral Disturbance, Cerebral Ath erosclerosis, CVA complicated by Dysphagia with PEG tube in place, HTN, COPD, Gout, Debility, GERD, Atrial Fib on therapeutic anticoagulation with Eliquis, Polycythemia Vera, Reflex Symptthetic Dystrophy, Cardiomyopathy S/P Pacemaker placement presents to ED for evaluation. Patient has diminished cognition and is unable to provide history. Patient history is provided by his who was at bedside during exam and interview. Patient reports "he is getting worse every day". Patient states that the patient has experienced increased weakness, increased confusion, as well as diminished intake over the past 1 month with persistently worsening symptoms at same timeframe. Patient is b edbound, nonambulatory and requires 6/6 assistance with activities of daily living. Patient has a palliative performance score 30% and is unable to maintain a seated position in bed. EMS was notified due to the aforementioned symptoms and upon arrival the patient was found to be in distress and sampson bsequently transported to [facility] for further care and evaluation of the aforementioned symptoms. The patient was seen and evaluated in the emergency department. All lab and imaging studies reviewed. Patient underwent chest x- ray which revealed bilateral pneumonia. The patient was initiated on pneumonia protocol and admitted to medical floor due to increased risk of worsening symptoms. No reports of fever, chills, chest pain, palpitations, productive cough, skin rash, recent ill contacts, or known exposure to COVID-19. Prior admission on 02/20/2020 reviewed. All medication listed at time of admission has been reconciled. Advanced care planning conducted in ED. 03/03: Patient admitted and be managed for adult failure to thrive noted to have pneumonia also being treated for possible incidental finding. Of call the but was unable to get her and I left a message. My understanding from the above note indicates that the family is agreeable to hospice consult placement. Patient was still with altered sensorium required restraints for safety. We will continue current management. We will also check a COVID-19 virus infection this will also assist with placement. Case discussed with case management today. 03/04/21 patient seen and examined. Patient is lethargic. No chest pain no shortness of breath. WBC 6.9. Chest x-ray shows bilateral pneumonia. Continue neb treatment antibiotic we also check COVID-19 infection. Continue current management. Recheck CBC BMP in the morning. 03/05/21 patient seen and examined. Patient is doing better. Patient is more awake alert. WBC 7.2 hemoglobin 16.8 hematocrit 47.9. No chest pain no shortness of breath. Continue current management. Encourage p.o. intake. Case management evaluation for discharge planning. 03/06: Likely worsening dementia, discussed with nursing staff to remove four- point restraints and leave the patient on two-point restraints at this time. Continue current management. Awaiting placement services, hospice, home with home health. Patient is nonambulatory but will obtain OT evaluation for passive range of motion exercises. 03/07: Patient clinically stable although confusion still persist. Case phil aggarwal working with family to determine disposition. Complete antibiotic therapy cultures have been negative. 03/08/2021; patient is clinically stable, he is still confused likely due to use underlying dementia. Case management working to reach to the family to determine the disposition plan but could not reach to the family. 03/09/2021; patient is still confused on and on restraints. I have a long discussion with his yesterday and she is considering hospice. She said her sons will discuss with case management and let us know the plan. She is considering inpatient hospice. I have explained the management plan in detail. 03/10/2021 was unable to get patient off restraints. When they were removed patient attempted to keep getting out of bed was very confused. Patient inpatient hospice with [facility] more discussed with sons. Plan discussed with case management as well. Objective - Constitutional Vitals: Vital Signs - 12hr 03/10/21 05:08 Temperature 98.0 F Pulse Rate 60 Respiratory 18 Rate Blood Pressure 143/58 O2 Sat by Pulse 96 Oximetry General appearance: Present: no acute distress, well-nourished, other (Confused) - EENT Eyes: PERRL, EOM intact ENT: hearing intact, clear oral mucosa Ears: bilateral: normal - Neck Neck: supple, normal ROM - Respiratory Respiratory effort: normal Respiratory: bilateral: CTA - Breasts Breasts: normal - Cardiovascular Rhythm: regular Heart Sounds: Present: S1 & S2. Absent: gallop, rub Extremities: pulses intact, No edema, normal color, Full ROM Extremity abnormal: other (Able to move extremities.) - Gastrointestinal General gastrointestinal: Present: soft, non-tender, non-distended, normal bowel sounds - Genitourinary Male genitourinary: normal - Integumentary Integumentary: clear, warm, dry - Musculoskeletal Musculoskeletal: 1, strength equal bilaterally - Neurologic Neurologic: moves all extremities - Psychiatric Psychiatric: memory intact, appropriate mood/affect, intact judgment & insight - Labs CBC & Chem 7: 03/05/21 05:30 03/05/21 05:30 HEART Score - HEART Score Troponin: Troponin T < 0.010 ng/mL (0.00-0.029) 03/02/21 13:54
[2021-03-10] MEDS: QUEtiapine 25 MG TAB PO SCH ×2 (14:26→21:32)
[2021-03-11] MEDS: allopurinoL 300 MG TAB PO SCH (09:35)
[2021-03-11] MEDS: METOPROLOL TARTRATE 50 MG TAB PO SCH (09:35)
[2021-03-11] MEDS: amLODIPine 5 MG TAB PO SCH (09:35)
[2021-03-11] MEDS: MEMANTINE 10 MG TAB PO SCH (09:35)
[2021-03-11] MEDS: FLECAINIDE 100 MG TAB PO SCH (09:36)
[2021-03-11] MEDS: FOLIC ACID 1 MG TAB PO SCH (09:36)
[2021-03-11] MEDS: APIXABAN 2.5 MG TAB PO SCH (09:36)
[2021-03-11] MEDS: RIVASTIGMINE 4.6 MG/24 HR PATCH TD SCH (09:36)
[2021-03-11] MEDS: QUEtiapine 25 MG TAB PO SCH (09:44)
[2021-03-11] MEDS: TAMSULOSIN 0.4 MG CAP PO SCH (09:50)
[2021-03-11] MEDS: THIAMINE 100 MG TAB FEEDTUBE SCH (11:06)
--- NOTE | 2021-03-11 11:10 | Discharge Summary ---
Providers - Providers Date of Admission: 03/02/21 17:00 Date of discharge: 03/11/21 Attending physician: JOSE PHAM 03/02/21 17:14 Consult to Case Management [CONS] Routine Services Needed at Discharge: Other Notified:: In a.m. Additional Physician Instructions: Patient family request possible care home facility placement. Patient reports will confer with family. Patient also requests home hospice evaluation. Hospice service notified. 03/03/21 09:25 Consult to Dietitian/Nutrition [CONS] Routine Physician Instructions: WRITE AND MANAGE TUBE FEEDS Reason For Exam: Reason for Consult: Poor oral intake 03/06/21 10:01 Occupational Therapy Evaluate and Treat [CONS] Routine Comment: Reason For Exam: debility 03/08/21 04:10 Consult to Wound/ET Nurse [CONS] Routine Reason For Exam: wound eval POSS CELLULITIS TO (R) ELBOW/ARM Hospitalization Condition: Poor Pertinent studies: Head CT scan without contrast unremarkable for acute CVA. 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 Patient has diminished cognition and is unable to provide history. Patient history is provided by his who was at bedside during exam and interview. Patient reports "he is getting worse every day". Patient states that the patient has experienced increased weakness, increased confusion, as well as diminished intake over the past 1 month with persistently worsening symptoms at same timeframe. Patient is bedbound, nonambulatory and requires 6/6 assistance with activities of daily living. Patient has a palliative performance score 30% and is unable to maintain a seated position in bed. EMS was notified due to the aforementioned symptoms and upon arrival the patient was found to be in distress and subsequently transported to [facility] for further care and evaluation of the aforementioned symptoms. The patient was seen and evaluated in the emergency department. All lab and imaging studies reviewed. Patient underwent chest x- ray which revealed bilateral pneumonia. The patient was initiated on pneumonia protocol and admitted to medical floor due to increased risk of worsening symptoms. No reports of fever, chills, chest pain, palpitations, productive cough, skin rash, recent ill contacts, or known exposure to COVID-19. Prior admission on 02/20/2020 reviewed. Patient is failed hospitalization and skilled care. Patient is hospice appropriate with a diagnosis of CVA with dysphagia. Patient has had acute decline as evidenced by increased weakness, increased confusion, weight loss despite PEG tube feedings. Patient debility and decreased functional status. Patient totally dependent on all ADLs 6 out of 6 ADLs. Patient currently has a PPS of 30, nonverbal. Further decline also evidenced by aspiration pneumonia, multiple hospitalizations and failure to thrive. Plan for patient to be transferred to inpatient hospice services. Patient's had mood disorder in which she required restraints. Patient was started on antipsychotics Seroquel 50 mg twice daily in patient's mood improved where he did no longer requires physical restraints. Patient has not had restraints since yesterday and is remained stable in bed however dependent on 6 out of 6 ADLs. Patient meets almost all ill lCDs for CVA dysphagia and is therefore hospice appropriate. Patient is hospice appropriate and if he continues to decline at current rate his life expectancy is less than 6 months. Would recommend the patient stays on hospice to eventually discontinue Eliquis 7 days. We will also discontinue dementia medications at this point. Does not seem to be effective and will be effective in the near future. Disposition: [id number] ([facility]) Final Discharge Diagnosis (Prints w/discharge instructions): 28 - Discharge Diagnoses (1) Advance care planning Status: Acute (2) Altered mental status Status: Acute Comment: This has resolved. (3) Atrial fibrillation Status: Acute (4) Bilateral pneumonia Status: Acute (5) Debility Status: Acute (6) Vascular dementia with behavioral disturbance Status: Acute Core Measure Documentation - Palliative Care Palliative Care/ Comfort Measures: Not Applicable - Core Measures Any of the following diagnoses?: none Exam - Constitutional Vitals: Temp Pulse Resp BP Pulse Ox 97.6 F 60 18 136/72 99 03/11/21 04:09 03/11/21 04:09 03/11/21 04:09 03/11/21 04:09 03/11/21 04:09 General appearance: Present: no acute distress, cachectic, other (Alert and oriented x1 occasionally. Unable to really communicate and essentially nonverbal giving less than 3 words at all times and they are nonsensible) - Respiratory Respiratory: bilateral: diminished (Poor inspiratory effort) - Cardiovascular Rhythm: regular - Extremities Extremity abnormal: other (Edema deconditioning bilateral weakness.) - Abdominal General gastrointestinal: Present: other (PEG tube feedings) - Musculoskeletal Musculoskeletal: generalized weakness - Psychiatric Psychiatric: other (Debilitated nonverbal) Plan Activity: other (Bedbound) Diet: other (PEG tube) Follow up with: RADHA BAINS [Other] - 3-5 Days Prescriptions: amLODIPine 2.5 mg PO DAILY #30 Apixaban [Eliquis] 1 tab PO BID #7 Tamsulosin [Flomax] 0.4 mg PO DAILY #20 cap Metoprolol [Lopressor TAB] 50 mg PO BID #60 ALBUTEROL NEB's [Proventil 0.083% NEBS] 2.5 mg IH Q4HRT PRN #7 nebu PRN Reason: Shortness Of Breath QUEtiapine [SEROquel] 50 mg PO BID #60 tablet Flecainide [Tambocor] 50 mg PO Q12H #30 Thiamine [Vitamin B-1] 100 mg FEEDTUBE QDAY #7 tablet
[2021-03-11 17:58] VITALS: BP 103/65
== END 2021-03-11 17:59 | disposition hospice, inpatient (51) | DRG 194 ==
LOC: ED 12:21 → 3A 17:00
PROVIDERS: ADMIT Internal Medicine; ATTEND Internal Medicine
DX: J18.9 Pneumonia, unspecified organism (principal); F01.51 Vascular dementia, unspecified severity, with behavioral disturbance; J44.0 Chronic obstructive pulmonary disease with (acute) lower respiratory infection; I10 Essential (primary) hypertension; K21.9 Gastro-esophageal reflux disease without esophagitis; R53.81 Other malaise; I48.91 Unspecified atrial fibrillation; I67.2 Cerebral atherosclerosis; M10.9 Gout, unspecified; R13.10 Dysphagia, unspecified; R62.7 Adult failure to thrive; Z86.73 Personal history of transient ischemic attack (TIA), and cerebral infarction without residual deficits; Z88.5 Allergy status to narcotic agent; Z82.49 Family history of ischemic heart disease and other diseases of the circulatory system; Z95.0 Presence of cardiac pacemaker; Z68.22 Body mass index [BMI] 22.0-22.9, adult
CPT/HCPCS: 36415; 70450; 71045; 80048; 80076; 81001; 82140; 82550; 82607; 82962; 84443; 84484; 85025; 85610; 85730; 87040; 93005; 94640; 96361; 96365; G0378; J0456; J0696; J1630; J1956; J2060; J3411; J7030